=== PATIENT | female | born 1995 | race Caucasian/White ===

== ENCOUNTER → 2019-06-18 11:42 | Outpatient (BNVA) | payer MEDICAID, SELFPAY | PROVIDERS: Family Provider Family Medicine; PCP Family Medicine; Visit Provider Nurse Practitioner Women's Health | DX: N93.9 Abnormal uterine and vaginal bleeding, unspecified (principal) | CPT/HCPCS: 81025; 87491; 87591; 87661 ==

== ENCOUNTER → 2019-07-03 10:56 | Outpatient (BNVA) | payer MEDICAID, SELFPAY | PROVIDERS: Family Provider Family Medicine; PCP Family Medicine; Visit Provider Nurse Practitioner Women's Health | DX: N93.9 Abnormal uterine and vaginal bleeding, unspecified (principal) | CPT/HCPCS: 76830 ==

== ENCOUNTER → 2019-08-26 10:13 | Outpatient (BNVA) | payer MEDICAID, SELFPAY | PROVIDERS: Family Provider Family Medicine; PCP Family Medicine; Visit Provider Nurse Practitioner Women's Health | DX: Z72.51 High risk heterosexual behavior (principal); N93.9 Abnormal uterine and vaginal bleeding, unspecified | CPT/HCPCS: 84702 ==

== ENCOUNTER → 2019-09-10 10:26 | Outpatient (BNVA) | payer MEDICAID, SELFPAY | PROVIDERS: Family Provider Family Medicine; PCP Family Medicine; Visit Provider Emergency Medicine | DX: Z34.90 Encounter for supervision of normal pregnancy, unspecified, unspecified trimester (principal); N93.9 Abnormal uterine and vaginal bleeding, unspecified | CPT/HCPCS: 81025; 84702 ==

== ENCOUNTER → 2020-04-13 12:36 | Outpatient (BNVA) | payer MEDICAID, SELFPAY | PROVIDERS: Family Provider Family Medicine; PCP Family Medicine; Visit Provider Emergency Medicine | DX: Z32.00 Encounter for pregnancy test, result unknown (principal); R11.0 Nausea | CPT/HCPCS: 81025 ==

== ENCOUNTER → 2020-06-06 13:34 | Outpatient (BNVA) | payer MEDICAID, SELFPAY | PROVIDERS: Family Provider Family Medicine; PCP Family Medicine; Referring Provider Registered Nurse; Visit Provider Registered Nurse | DX: Z79.899 Other long term (current) drug therapy (principal) | CPT/HCPCS: 36415; 80053; 80061; 82306; 83036; 83540; 85025 ==

== ENCOUNTER → 2020-07-06 14:24 | Outpatient (BNVA) | payer MEDICAID, SELFPAY | PROVIDERS: Family Provider Family Medicine; PCP Family Medicine; Visit Provider Emergency Medicine | DX: R53.83 Other fatigue (principal); R10.9 Unspecified abdominal pain; Z33.1 Pregnant state, incidental | CPT/HCPCS: 81000; 81025 ==

== ENCOUNTER 2020-08-19 16:41 | Emergency (ER) | payer MEDICAID, SELFPAY ==
[2020-08-19 17:49] LABS: Basophils % 0.3 %; Eosinophils # 0.1 10^3/uL (0.0-0.8); Eosinophils % 1.2 %; Hematocrit 33.4 % (37.0-47.0); Hemoglobin 11.2 g/dL (11.5-15.3); Lymphocytes # 1.9 10^3/uL (0.8-4.8); Lymphocytes % 20.5 %; Mean Corpuscular HGB Conc 33.5 g/dL (30.0-36.0); Mean Corpuscular Hemoglobin 32.4 pg (28.0-34.0); Mean Corpuscular Volume 96.5 fL (81-99); Mean Platelet Volume 9.2 fL (7.4-10.4); Monocytes # 0.7 10^3/uL (0.2-0.9); Neutrophils # 6.61 10^3/uL (1.8-7.7); Neutrophils % 70.3 %; Nucleated Red Blood Cells % 0 %; Platelet Count 283 10^3/cmm (130-400); Red Blood Count 3.46 10^6/uL (4.1-5.3); Red Cell Distribution Width 13.5 % (12.1-15.1); White Blood Count 9.4 10^3/uL (4.0-10.0)
[2020-08-19 17:51] VITALS: BP 103/58; PULSE 72; RESP 16; TEMP 36.7; O2SAT 97; BMI 19.8
[2020-08-19 18:29] LABS: Alanine Aminotransferase 11 U/L (0-33); Albumin Level 3.8 g/dL (3.5-5.2); Alkaline Phosphatase 50 IU/L (35-105); Anion Gap 14.9 (5-19); Aspartate Amino Transferase 11 U/L (0-32); Blood Urea Nitrogen 8 mg/dL (6-20); Calcium 8.6 mg/dL (8.5-10.5); Carbon Dioxide 22 mmol/L (22-29); Chloride 103 mmol/L (98-107); Globulin 2.1 g/dL (1.3-4.6); Glomerular Filtration Rate 273.3 mL/min (90-130); Glucose 79 mg/dL (65-115); Osmolality Calculated 279 mOsm/kg (285-295); Potassium 3.9 mmol/L (3.5-5.1); Sodium 136 mmol/L (136-145); Total Bilirubin 0.2 mg/dL (0.15-1.2); Total Protein 5.9 g/dL (6.6-8.7)
[2020-08-19 22:39] VITALS: BP 113/71; PULSE 75; RESP 18; O2SAT 100
--- NOTE | 2020-08-19 22:49 | ED_ITS ---
HPI - General: Chief complaint: Vaginal Bleeding Stated complaint: 6 WKS /SENT BY [facility] FOR CRAMP[facility]/BLEED Time Seen by Provider: 08/19/20 22:34 Source: patient Mode of arrival: ambulatory Limitations: no limitations History of Present Illness: HPI Narrative: 25-year-old female states that she believes she is either 6 or 12 weeks . She states that her OB told her she is 6 weeks did not have an ultrasound. She states that by her last menstruation she believes she is 12 weeks. States that today she had some very slight vaginal bleeding. She states it has not been enough to fill up a pad. She denies any blood clots and denies any pain. This is her first . Date of Last Menstrual Period: 06/09/20 Associated symptoms: Deny abdominal pain, headache(s), nausea or vomiting Related Data: : 1 Review of Systems Const: Denies: fever(s), chills, body aches or change in appetite Eyes: Denies: blurry vision or eye discomfort ENMT: Denies: throat pain or dental pain Card: Denies: chest pain Resp: Denies: dyspnea GI: Denies: abdominal pain, nausea, vomiting or diarrhea : Reports: vaginal bleeding Musc: Denies: neck pain or back pain Skin/Breast: Denies: rash Neuro: Denies: headache(s) Psych: Denies: depression Eliud/Lymph: Denies: easy bruising All/Imm: Denies: urticaria PFSH ED PFSH: Medical History Abnormal uterine bleeding No pertinent past medical history neghx: dm,htn,thyroid,dvt/pe Surgical History No pertinent past surgical history Family History Grandmother Hypertension Maternal grandmother Diabetes Maternal grandmother Denies family history of Hyperlipidemia Stroke Social History Smoking and tobacco status: current every day smoker Alcohol intake: never Additional social history: Tobacco use: Everyday smoker--- smokes two cigarettes per day Alcohol use: denies Drug use: Denies past or present use Female Reproductive History: Date of last menstrual period: 06/09/20 : 1 Spontaneous abortions: No Physical Exam Const: COMMON NORMALS: no acute distress, patient oriented x3 and healthy harmony earing HENMT: COMMON NORMALS: normocephalic and atraumatic HEAD & SCALP: normocephalic and atraumatic Eye: COMMON NORMALS: Equal, round and reactive pupils present and EOMs intact bilaterally PUPIL: Yes Equal, round and reactive pupils present Neck/C-Spine: COMMON NORMALS: full ROM and supple Chest: COMMONS NORMALS: normal inspection of the chest and normal palpation of entire chest wall Resp: COMMON NORMALS: normal respiratory effort, No retractions, No use of accessory muscles and clear to auscultation bilaterally AUSCULTATION: clear to auscultation bilaterally Cardio: COMMON NORMALS: regular rate, regular rhythm and No murmurs present (Cardio) RATE: regular rate RHYTHM: regular rhythm GI: COMMON NORMALS: Normal to inspection, nondistended, normoactive bowel sounds present, Soft to palpation, non-tender and no masses PALPATION: Yes Soft to palpation Extremity: COMMON NORMALS: normal to inspection and full ROM Neuro: COMMON NORMALS: patient oriented x3, moves all extremities and no focal motor deficits Psych: COMMON NORMALS: mental status grossly normal, Normal thought process present and cooperative THOUGHT PROCESS: Normal thought process present Skin: COMMON NORMALS: no rashes or lesions noted and no wounds GENERAL SKIN EXAM: no rashes or lesions noted Course Vital Signs: Vital signs: Vital Signs Temperature 98.1 F 08/19/20 17:51 Pulse Rate 75 08/19/20 22:39 Respiratory Rate 18 08/19/20 22:39 Blood Pressure 113/71 08/19/20 22:39 Pulse Oximetry 100 08/19/20 22:39 MDM - OB/Uterine Contractions MDM Narrative: Medical decision making narrative: Patient presents here with vaginal bleeding with threatened miscarriage. Her bleeding is very minimal. Otis torres's blood work here is all normal she has no pain and bleeding is since stopped. Did a bedside ultrasound that actually showed her IUP to be roughly 12 to 13 weeks with good movement and heart rate of 146. Patient has no signs of ectopic. She is stable for discharge is to follow-up with her OB Dr. Guzmán and return if worsening. Lab Data: Labs: Lab Results 08/19/20 08/19/20 08/19/20 Range/Units 17:35 17:35 17:35 WBC 9.4 (4.0-10.0) 10^3/ uL RBC 3.46 L (4.1-5.3) 10^6/u L Hgb 11.2 L (11.5-15.3) g/dL Hct 33.4 L (37.0-47.0) % MCV 96.5 (81-99) fL MCH 32.4 (28.0-34.0) pg MCHC 33.5 (30.0-36.0) g/dL RDW 13.5 (12.1-15.1) % Plt Count 283 (130-400) 10^3/c mm MPV 9.2 (7.4-10.4) fL Neut % (Auto) 70.3 % Lymph % (Auto) 20.5 % [place] % (Auto) 7.0 % Eos % (Auto) 1.2 % Baso % (Auto) 0.3 % Neut # (Auto) 6.61 (1.8-7.7) 10^3/u L Lymph # (Auto) 1.9 (0.8-4.8) 10^3/u L [place] # (Auto) 0.7 (0.2-0.9) 10^3/u L Eos # (Auto) 0.1 (0.0-0.8) 10^3/u L Baso # (Auto) 0.0 (0.0-0.1) 10^3/u L Nucleated RBC % (a uto) 0 % Nucleated RBCs # 0.0 /100WBC Sodium 136 (136-145) mmol/L Potassium 3.9 (3.5-5.1) mmol/L Chloride 103 (98-107) mmol/L Carbon Dioxide 22 (22-29) mmol/L Anion Gap 14.9 (5-19) BUN 8 (6-20) mg/dL Creatinine 0.3 L (0.5-0.9) mg/dL GFR Calculation 273.3 H (90-130) mL/min Glucose 79 (65-115) mg/dL Calculated Osmolal ity 279 L (285-295) mOsm/k g Calcium 8.6 (8.5-10.5) mg/dL Total Bilirubin 0.2 (0.15-1.2) mg/dL AST 11 (0-32) U/L ALT 11 (0-33) U/L Alkaline Phosphata se 50 (35-105) IU/L Total Protein 5.9 L (6.6-8.7) g/dL Albumin 3.8 (3.5-5.2) g/dL Globulin 2.1 (1.3-4.6) g/dL Ser , [place] 9[address].00 mIU/mL Blood Type A Positive Rho(D) Type Positive / 4+ Discharge Plan Discharge Patient Disposition: Home Clinical Impression: Threatened miscarriage Condition: Stable Prescriptions: No Action prenat.vits,apple,wax-gbmo-mtlhk Tablet 1 tab PO DAILY RF: 0 Discharge Orders: Discharge ED (Routine); Ordered 08/19/20 Ordered By: Roly Samano Referrals: Kari Willingham MD [Primary Care Provider] - Discharge Diet: Advance as tolerated Discharge Activity: Resume usual activity Patient Instructions: Threatened Miscarriage (ED) Coding Level of Care Code ED Ball Sorter for Chg Fwd Exam Comprehensive
== END 2020-08-19 23:00 | disposition home or self-care (01) ==
PROVIDERS: Physician Assistant; Emergency Provider Emergency Medicine; PCP Family Medicine
DX: O20.0 Threatened abortion (principal); O99.331 Smoking (tobacco) complicating pregnancy, first trimester; F17.210 Nicotine dependence, cigarettes, uncomplicated; Z3A.12 12 weeks gestation of pregnancy
CPT/HCPCS: 36415; 80053; 84702; 85025; 86900; 99282

== ENCOUNTER → 2020-09-26 15:44 | Outpatient (BNVA) | payer MEDICAID, SELFPAY | PROVIDERS: PCP Family Medicine; Visit Provider Nurse Practitioner Psychiatric/Mental Health | DX: F31.81 Bipolar II disorder (principal); F43.12 Post-traumatic stress disorder, chronic | CPT/HCPCS: 99213 ==

== ENCOUNTER → 2020-10-24 07:41 | Outpatient (BNVA) | payer MEDICAID, SELFPAY | PROVIDERS: PCP Family Medicine; Visit Provider Nurse Practitioner Psychiatric/Mental Health | DX: F31.81 Bipolar II disorder (principal); Z34.90 Encounter for supervision of normal pregnancy, unspecified, unspecified trimester | CPT/HCPCS: 99213 ==

== ENCOUNTER 2020-11-15 21:19 | Outpatient (CLI) | payer MEDICAID, SELFPAY ==
[2020-11-15 21:31] VITALS: BP 122/73; PULSE 93
[2020-11-15 21:33] VITALS: TEMP 37.3
[2020-11-15 21:47] VITALS: RESP 14
[2020-11-15 21:59] VITALS: BMI 24.8
[2020-11-15 22:18] LABS: Bilirubin Urine Neg (Negative); Blood Urine Neg (Negative); Glucose Urine UA Norm (Normal); Ketones Urine Negative (Negative); Leukocyte Esterase Urine 1+ (Negative); Nitrate Urine Negative (Negative); Protein Urine Neg (Negative); Urine Appearance SL Hazy (CLEAR); Urine Color Straw (Yellow); Urobilinogen Urine Norm (Negative); pH Urine 7 (5-7)
[2020-11-15 22:22] LABS: Add Urine Culture? No; Bacteria Urine TRACE /hpf; Squamous Epithelial Cell Urine 25-40 /hpf (0-5); WBC Urine 0-4 /hpf (0-5)
[2020-11-15] MEDS: acetaminophen 500 mg Tablet 1000 MG PO (22:22)
[2020-11-15 22:39] VITALS: BP 128/75; PULSE 75; TEMP 36.8
[2020-11-15 22:50] VITALS: BP 128/75; PULSE 75; RESP 15; TEMP 36.8
== END 2020-11-15 22:54 | disposition home or self-care (01) ==
LOC: OPOB 21:20 → OBGYN 21:21
PROVIDERS: PCP Family Medicine; Visit Provider Family Medicine
DX: O26.899 Other specified pregnancy related conditions, unspecified trimester (principal); Z3A.00 Weeks of gestation of pregnancy not specified; R10.9 Unspecified abdominal pain
CPT/HCPCS: 81001; 99211

== ENCOUNTER → 2020-12-26 11:27 | Outpatient (BNVA) | payer MEDICAID, SELFPAY | PROVIDERS: PCP Family Medicine; Visit Provider Nurse Practitioner Psychiatric/Mental Health | DX: F31.81 Bipolar II disorder (principal); Z34.93 Encounter for supervision of normal pregnancy, unspecified, third trimester | CPT/HCPCS: 99213 ==

== ENCOUNTER 2021-01-19 12:36 | Outpatient (CLI) | payer MEDICAID, SELFPAY ==
[2021-01-19 12:36] VITALS: BMI 28.6
[2021-01-19 12:56] VITALS: BP 110/73; PULSE 79
[2021-01-19 12:57] VITALS: BP 114/66; PULSE 92
[2021-01-19 13:12] VITALS: BP 112/70; PULSE 75
[2021-01-19 13:21] VITALS: RESP 17
[2021-01-19 13:27] VITALS: BP 106/70; PULSE 77
== END 2021-01-19 13:35 | disposition home or self-care (01) ==
LOC: OPOB 12:43 → OBGYN 12:45
PROVIDERS: PCP Family Medicine; Visit Provider Family Medicine
DX: O99.891 Other specified diseases and conditions complicating pregnancy (principal); R10.2 Pelvic and perineal pain; O12.00 Gestational edema, unspecified trimester
CPT/HCPCS: 59025; 99211

== ENCOUNTER → 2021-01-23 07:54 | Outpatient (BNVA) | payer MEDICAID, SELFPAY | PROVIDERS: PCP Family Medicine; Visit Provider Nurse Practitioner Psychiatric/Mental Health | DX: F31.81 Bipolar II disorder (principal); Z34.93 Encounter for supervision of normal pregnancy, unspecified, third trimester | CPT/HCPCS: 99213 ==

== ENCOUNTER 2021-01-27 17:55 | Outpatient (CLI) | payer MEDICAID, SELFPAY ==
[2021-01-27 18:09] VITALS: BP 132/87; PULSE 80
[2021-01-27 18:14] VITALS: BMI 29.2
[2021-01-27 18:32] VITALS: TEMP 36.9
[2021-01-27 18:51] VITALS: BP 134/88; PULSE 93
[2021-01-27 19:05] VITALS: BP 126/74; PULSE 68
[2021-01-27 19:11] LABS: Bilirubin Urine Neg (Negative); Blood Urine Trace (Negative); Glucose Urine UA Norm (Normal); Ketones Urine Negative (Negative); Leukocyte Esterase Urine 2+ (Negative); Nitrate Urine Negative (Negative); Protein Urine Neg (Negative); Urine Appearance Clear (CLEAR); Urine Color Yellow (Yellow); Urobilinogen Urine Norm (Negative); pH Urine 7 (5-7)
[2021-01-27 19:12] LABS: RBC Urine 0-4 /hpf (0-2); WBC Urine 40-55 /hpf (0-5)
[2021-01-27 19:13] LABS: Add Urine Culture? No; Bacteria Urine 3+ /hpf; Squamous Epithelial Cell Urine 25-40 /hpf (0-5)
[2021-01-27 19:20] VITALS: BP 118/77; PULSE 65
[2021-01-27 19:35] VITALS: BP 125/87; PULSE 75
[2021-01-27] MEDS: amoxicillin 500 mg Capsule PO (19:51)
--- NOTE | 2021-01-27 20:16 | PC.NURSE ---
amoxicillin 500 mg BID x7 days called into [facility] in [place].
== END 2021-01-27 19:57 | disposition home or self-care (01) ==
LOC: OPOB 18:03 → OBGYN 18:04
PROVIDERS: Family Medicine; PCP Family Medicine; Visit Provider Family Medicine
DX: O26.899 Other specified pregnancy related conditions, unspecified trimester (principal); Z3A.00 Weeks of gestation of pregnancy not specified; R10.30 Lower abdominal pain, unspecified
CPT/HCPCS: 59025; 81001; 99211

== ENCOUNTER 2021-02-05 08:38 | Inpatient (IN) | payer MEDICAID, SELFPAY ==
[2021-02-05] VITALS (73 sets, daily range): BP systolic 112–180; BP diastolic 61–107; PULSE 74–203; RESP 16–20; TEMP 35.6–37.8; O2SAT 97–100; BMI 30.1
[2021-02-05 08:09] LABS: Actim Prom Positive
[2021-02-05 08:09] LABS: Bilirubin Urine Neg (Negative); Blood Urine 3+ (Negative); Glucose Urine UA Norm (Normal); Ketones Urine Negative (Negative); Leukocyte Esterase Urine 2+ (Negative); Nitrate Urine Negative (Negative); Protein Urine Neg (Negative); Specific Gravity, Urine 1.005 (1.005-1.030); Urine Appearance SL Hazy (CLEAR); Urine Color Straw (Yellow); Urobilinogen Urine Norm (Negative); pH Urine 7 (5-7)
[2021-02-05 08:11] LABS: Bacteria Urine 1+ /hpf; RBC Urine >100 /hpf (0-2); Squamous Epithelial Cell Urine 25-40 /hpf (0-5); WBC Urine 15-25 /hpf (0-5)
[2021-02-05 08:12] LABS: Add Urine Culture? No; Amphetamines Screen Urine Negative (Negative); Barbiturates Screen Urine Negative (Negative); Benzodiazepines Screen Urine Negative (Negative); Cocaine Screen Urine Negative (Negative); Opiate Screen Urine Negative (Negative); PCP Screen Urine Negative (Negative); THC Screen Urine Negative (Negative)
[2021-02-05 09:22] LABS: Basophils % 0.2 %; Eosinophils % 0.1 %; Hemoglobin 12.9 g/dL (11.5-15.3); Lymphocytes # 1.9 10^3/uL (0.8-4.8); Mean Corpuscular HGB Conc 34.9 g/dL (30.0-36.0); Mean Corpuscular Hemoglobin 32.9 pg (28.0-34.0); Mean Corpuscular Volume 94.4 fl (81-99); Mean Platelet Volume 9.6 fL (7.4-10.4); Monocytes # 1.1 10^3/uL (0.2-0.9); Monocytes % 7.1 %; Neutrophils # 12.28 10^3/uL (1.8-7.7); Neutrophils % 79.9 %; Nucleated Red Blood Cells % 0 %; Platelet Count 246 10^3/cmm (130-400); Red Blood Count 3.92 10^6/uL (4.1-5.3); Red Cell Distribution Width 12.7 % (12.1-15.1); White Blood Count 15.4 10^3/uL (4.0-10.0)
[2021-02-05] MEDS: oxytocin 30 UNIT/500 ML BAG IV (11:07)
[2021-02-05] MEDS: dextrose 5%-lactated ringers 1,000 ML 125 ML IV (11:08)
[2021-02-05] MEDS: oxytocin 30 UNIT/500 ML BAG 4 UNIT IV (11:30)
--- NOTE | 2021-02-05 12:43 | ANES.PAUD2 ---
Pre-Anesthetic Update Pre-Anesthetic Assessment: Date of Surgery/Procedure: 02/05/21 Preop Diagnosis: IUP Any changes to Pre-Anesthetic Assessment?: No Labs Last 48hrs: Laboratory Results - last 48 hr 02/05/21 02/05/21 02/05/21 07:40 07:40 07:45 WBC RBC Hgb Hct MCV MCH MCHC RDW Plt Count MPV Neut % (Auto) Lymph % (Auto) [place] % (Auto) Eos % (Auto) Baso % (Auto) Neut # (Auto) Lymph # (Auto) [place] # (Auto) Eos # (Auto) Baso # (Auto) Nucleated RBC % (a uto) Nucleated RBCs # Insulin-like GF I Positive Urine Color Straw Urine Appearance Sl hazy Urine pH 7 Ur Specific Gravit y 1.005 Urine Protein Neg Urine Glucose (UA) Norm Urine Ketones Negative Urine Blood 3+ H Urine Nitrate Negative Urine Bilirubin Neg Urine Urobilinogen Norm Ur Leukocyte Tanja ase 2+ H Urine RBC >100 H Urine WBC 15-25 H Ur Squamous Epith Cells 25-40 H Amorphous Sediment Not Reportable Urine Bacteria 1+ H Urine Opiates Scre en Negative Ur Barbiturates Sc reen Negative Ur Phencyclidine S crn Negative Ur Amphetamines Sc reen Negative U Benzodiazepines Scrn Negative Urine Cocaine Scre en Negative U Marijuana (THC) Screen Negative 02/05/21 08:45 WBC 15.4 H RBC 3.92 L Hgb 12.9 Hct 37.0 MCV 94.4 MCH 32.9 MCHC 34.9 RDW 12.7 Plt Count 246 MPV 9.6 Neut % (Auto) 79.9 Lymph % (Auto) 12.0 [place] % (Auto) 7.1 Eos % (Auto) 0.1 Baso % (Auto) 0.2 Neut # (Auto) 12.28 H Lymph # (Auto) 1.9 [place] # (Auto) 1.1 H Eos # (Auto) 0.0 Baso # (Auto) 0.0 Nucleated RBC % (a uto) 0 Nucleated RBCs # 0.0 Insulin-like GF I Urine Color Urine Appearance Urine pH Ur Specific Gravit y Urine Protein Urine Glucose (UA) Urine Ketones Urine Blood Urine Nitrate Urine Bilirubin Urine Urobilinogen Ur Leukocyte Tanja ase Urine RBC Urine WBC Ur Squamous Epith Cells Amorphous Sediment Urine Bacteria Urine Opiates Scre en Ur Barbiturates Sc reen Ur Phencyclidine S crn Ur Amphetamines Sc reen U Benzodiazepines Scrn Urine Cocaine Scre en U Marijuana (THC) Screen Vitals: Temperature 96.1 F L 02/05/21 12:09 Pulse Rate 129 H 02/05/21 12:37 Pulse Rhythm 02/05/21 08:42 Pulse Strength 3+ Normal 02/05/21 08:42 Respiratory Rate 20 H 02/05/21 08:38 Respiratory Effort Non-Labored 02/05/21 08:42 Respiratory Depth Normal 02/05/21 08:42 Respiratory Patter n 02/05/21 08:42 Blood Pressure 140/83 02/05/21 12:37 Blood Pressure Leticia n 115 02/05/21 08:38 Pulse Oximetry 98 02/05/21 12:37 Oxygen Delivery Me thod 02/05/21 08:42 Exam: Pre-Anes Outpt Exam: alert, oriented x 3, clear to auscultation bilaterally and regular rate & rhythm Cardiac Studies: No Data to Display
--- NOTE | 2021-02-05 12:43 | ANES.PROC ---
Anesthesia Procedures Procedure/Date: 02/05/21 epidural Procedure Narrative: epidural complete, bolus given, epidural pump initiated with FIRE CAPTAIN education given, vitals taken during procedure using OBIX system and satisfactory throughout, patient admits to decrease pain, report of procedure to OB RN Epidural: Time Out Performed: Yes Consents Signed: Procedure Consent Consent: requested by attending/covering physician, from patient, risks and benefits reviewed and patient agrees to proceed Lumbar Level: L3-L4 Epidural position: sitting Epidural procedure: sterile prep of area, 1% lidocaine to numb the area (3 mL), 18 g needle, negative for paresthesia passed, neg for paresthesia, test dose given, 1.5% xylocaine 1:200k epi (5 mL), 0.2% Ropivacaine bolus ml (5 mL), placed PCEA, no systemic response, sterile dressing applied, L.U.D. no apparent complications and 0.2% Ropiavacaine @ mls/hr (11 mL/hr)
[2021-02-05] MEDS: metoclopramide 5 mg/mL SDV 2 mL 10 MG IV (12:47)
[2021-02-05] MEDS: lidocaine 2% INJ 20 mL INJECTION (18:24)
--- NOTE | 2021-02-05 18:54 | PM.OPHPUD ---
Labor & Delivery H&P Update Date of Procedure: February 05, 2021 Date H&P Performed: 02/01/21 H&P update information: I have reviewed H&P completed within last 30 days, I have examined patient prior to procedure and Changes to prior documentation as noted here Changes to previous documentation: The patient was noted to have spontaneous rupture membranes according to actin PROM test Admission Diagnosis: Preop diagnosis: IUP Planned procedure: Spontaneous vaginal delivery Other information: The patient is a 1 at 39 weeks estimated gestational age who presented to the hospital with question of rupture membranes. That was verified via the actin PROM test. Her has been unremarkable otherwise. Her blood type is a positive her antibody screen is negative. Her glucose screen was negative. The remainder of her lab work was within normal limits. Related Problem List Diagnoses (1) 39 weeks gestation of : (2) Spontaneous rupture of membranes:
--- NOTE | 2021-02-05 19:00 | PM.DELIVERY ---
Delivery Note: Date of delivery: February 05, 2021 Pre-delivery diagnoses: 25-year-old 1 at 39 weeks estimated gestational age Post-delivery diagnoses: Same Procedure: Spontaneous vaginal delivery Op report anesthesia: Epidural Delivering Physician: Aidan Guzmán Estimated blood loss (mL): 200 Pre-Delivery Course: The patient arrived at the hospital and was found to have ruptured membranes. Her labor was augmented with Pitocin. She progressed to complete without difficulty. Delivery: DELIVERY: The patient progressed to complete without difficulty. She delivered a male with a weight of 7 pounds 7 ounces with Apgars of 9, 9. The baby was delivered from the ARSALAN position and placed on the mother's abdomen where his mouth and nose were suctioned.. The cord was then clamped and cut approximately 1 minute after delivery. There was a nuchal cord x1 which was reduced prior to delivery. There was terminal meconium. The placenta and 3 vessel cord were delivered intact shortly thereafter. The perineum and vaginal vault were carefully examined. A first-degree laceration was noted of the left labia minora as well as a first-degree laceration of the posterior vaginal wall. The labia minora was repaired with 3-0 Vicryl. The vaginal wall laceration was not bleeding and was not repaired. Both the mother and the baby were in stable condition. Post-Delivery Status: Good History History History 0 Term Miscarriages/Ectopic Living Children A&P Assessment and plan (1) 39 weeks gestation of : I anticipate routine care. She intends to breast-feed her child. Status: Acute (2) Spontaneous rupture of membranes: Status: Acute Coding Level of Care Code Acute Dry Drug Worker for Chg Fwd Diagnoses 39 weeks gestation of Z3A.39 Spontaneous rupture of membranes
[2021-02-05] MEDS: ibuprofen 800 mg tablet PO (21:12)
[2021-02-06] VITALS (7 sets, daily range): BP systolic 113–136; BP diastolic 71–84; PULSE 68–106; RESP 16–18; TEMP 35.7–36.5; O2SAT 97
[2021-02-06 06:47] LABS: Hematocrit 27.9 % (37.0-47.0); Hemoglobin 9.8 g/dL (11.5-15.3); Mean Corpuscular HGB Conc 35.1 g/dL (30.0-36.0); Mean Corpuscular Hemoglobin 33.2 pg (28.0-34.0); Mean Corpuscular Volume 94.6 fl (81-99); Mean Platelet Volume 9.4 fL (7.4-10.4); Platelet Count 213 10^3/cmm (130-400); Red Blood Count 2.95 10^6/uL (4.1-5.3); Red Cell Distribution Width 13.1 % (12.1-15.1); White Blood Count 17.9 10^3/uL (4.0-10.0)
--- NOTE | 2021-02-06 08:43 | P.PN_ITS ---
FURNACE OPERATOR OIL OR GAS Subjective Subjective: Interval history: Her pain is well controlled. Her bleeding has been within normal limits. Vitals/I&O/Wt Last Vital Signs Temp 96.3 F L 02/06/21 02:19 Pulse 84 02/06/21 04:23 Resp 16 02/06/21 06:43 BP 131/73 02/06/21 04:23 Pulse Ox 98 02/05/21 12:57 02/05/21 02/06/21 02/06/21 22:59 06:59 14:59 Output Total 500 / 500 Balance -500 / -493.5 Weight last 48 hrs Weight 144 lb Physical Exam Narrative: EXAM NARRATIVE: The patient is alert. She appears comfortable. Her heart has a regular rate and rhythm with no murmurs appreciated. Lungs are clear to auscultation bilaterally. Her fundus is firm and below the umbilicus. Urinary Catheter Management^: William: Cath Placed During This Visit: yes Urinary Catheter Date of Insertion: 02/05/21 Urinary Catheter Time of Insertion: 13:00 Data : 02/06/21 06:30 A&P Assessment and plan (1) Spontaneous vaginal delivery: The patient is doing well. Her bleeding has been well controlled. I an ticipate she will be going home tomorrow. Status: Acute Attestations Medical Necessity Statement*: Routine post vaginal delivery care Coding Level of Care Code Acute Human Services Assistant for Chg Fwd Diagnoses Spontaneous vaginal delivery O80
--- NOTE | 2021-02-06 09:15 | ANE.PACU2 ---
Inpatient post-anesthesia follow up: Airway intact: Yes Vital signs: Temperature 96.3 F Pulse Rate 106 Respiratory Rate 16 Blood Pressure 130/71 Pulse Oximetry 98 Oxygen Delivery Me thod Room Air Oxygen Flow Rate Fraction of Inspir ed Oxygen Hydration adequate: Yes Nausea and vomiting: No Pain level: 2 Mental status: Baseline
[2021-02-06] MEDS: ibuprofen 800 mg tablet PO ×3 (09:41→22:18)
[2021-02-06] MEDS: docusate sodium 100 mg Capsule PO ×2 (09:41→18:12)
[2021-02-06] MEDS: prenatal vitamin Capsule 1 CAP PO (09:41)
[2021-02-06] MEDS: lanolin oint 7 gm 1 APPLIC TOPICAL (18:15)
[2021-02-07 03:51] VITALS: BP 117/69; PULSE 68; TEMP 36.6
--- NOTE | 2021-02-07 07:52 | P.DS_ITS ---
Discharge Providers DAIRY AND FOOD LABORATORY ASSISTANT Date of Admission: 02/05/21 08:38 Date of Discharge: 02/07/21 Attending Provider at Admission: Aidan Guzmán MD Attending Provider at Discharge: Aidan Guzmán MD Diagnoses at Discharge Discharge Diagnosis (1) 39 weeks gestation of : Status: Acute (2) Spontaneous rupture of membranes: Status: Acute Reason for Visit Reason for Visit: Abdominal pain Hospital Course Hospital Course The patient presented with possible ruptured membranes. Ruptured membranes were verified. The patient was placed on Cytotec. An amniotomy was performed. Her labor was augmented with Pitocin. She progressed to complete and had an unremarkable vaginal delivery of a healthy-appearing male infant. Her course was also unremarkable. She breast-fed well. Her pain was well controlled. Her bleeding was within normal limits. Information Peripartum Data: Delivery Method: Vaginal Physical Exam Narrative: EXAM NARRATIVE: The patient is alert. She appears comfortable. Her heart has a regular rate and rhythm with no murmurs appreciated. Lungs are clear to auscultation bilaterally. Her fundus is firm and below the umbilicus. Urinary Catheter Management^: William: Cath Placed During This Visit: yes Urinary Catheter Date of Insertion: 02/05/21 Urinary Catheter Time of Insertion: 13:00 History History History 0 Term Miscarriages/Ectopic Living Children Discharge Data Vitals: Last Vital Signs Temp 97.9 F 02/07/21 03:51 Pulse 68 02/07/21 03:51 Resp 16 02/06/21 22:00 BP 117/69 02/07/21 03:51 Pulse Ox 97 02/06/21 22:00 Discharge Plan Discharge Patient Disposition: Home Condition: Stable Prescriptions: New ibuprofen 800 mg Tablet 800 mg PO TID Qty: 45 RF: 0 Continued ferrous sulfate 325 mg (65 mg iron) tablet 325 mg PO DAILY RF: 0 ascorbate calcium (vitamin C) 500 mg tablet 500 mg PO DAILY RF: 0 prenat.vits,apple,rxb-grpl-klyug Tablet 1 tab PO DAILY RF: 0 Discharge Orders: Discharge Order (Routine); Ordered 02/07/21 Ordered By: Aidan Guzmán Referrals: Aidan Guzmán MD [Physician] - 6 Weeks Discharge Diet: Usual diet Discharge Activity: Limit activity as instructed Patient Instructions: Depression (DC), Bleeding (DC), Preeclampsia and Eclampsia After Delivery (GEN), OB Discharge Report, OB Food/Drug Interaction Guide, Opioid Safety, OB Home Care, OB Vaginal Deliveries Discharge Attestations DAIRY AND FOOD LABORATORY ASSISTANT Time Spent in Discharge Care*: greater than 30 min Specific Discharge Activities: Specific discharge activities: educating patient and educating and/or supporting family/caregiver Coding Level of Care Code Acute Retail Product Advisor for Chg Fwd Diagnoses 39 weeks gestation of Z3A.39 Spontaneous rupture of membranes
[2021-02-07 10:00] VITALS: BP 128/82; PULSE 78; RESP 16; TEMP 36.5; O2SAT 99
[2021-02-07] MEDS: docusate sodium 100 mg Capsule PO (10:03)
[2021-02-07] MEDS: prenatal vitamin Capsule 1 CAP PO (10:03)
[2021-02-07] MEDS: ibuprofen 800 mg tablet PO (10:03)
[2021-02-07] MEDS: benzocaine-menthol 78 gm Canister 1 SPRAY TOPICAL (10:03)
[2021-02-07] MEDS: lanolin oint 7 gm 1 APPLIC TOPICAL (10:04)
[2021-02-07 15:19] VITALS: BP 128/82; PULSE 78; RESP 16; TEMP 36.5; O2SAT 99
== END 2021-02-07 14:25 | disposition home or self-care (01) | DRG 807 ==
LOC: OPOB 10:46 → OBGYN 10:46
PROVIDERS: Admitting Provider Family Medicine; Visit Provider Family Medicine
DX: O69.81X0 Labor and delivery complicated by cord around neck, without compression, not applicable or unspecified (principal); Z37.0 Single live birth; O70.0 First degree perineal laceration during delivery; Z3A.39 39 weeks gestation of pregnancy; Z87.891 Personal history of nicotine dependence
CPT/HCPCS: 12345; 36415; 59025; 59409; 80306; 81001; 84112; 85025; 85027; 96374; 99211; J2765; J2795

== ENCOUNTER → 2021-02-23 10:36 | Outpatient (BNVA) | payer MEDICAID, SELFPAY | PROVIDERS: Visit Provider Nurse Practitioner Psychiatric/Mental Health | DX: F31.81 Bipolar II disorder (principal) | CPT/HCPCS: 99213 ==

== ENCOUNTER → 2021-03-21 08:14 | Outpatient (BNVA) | payer MEDICAID, SELFPAY | PROVIDERS: Visit Provider Nurse Practitioner Psychiatric/Mental Health | DX: F31.81 Bipolar II disorder (principal) | CPT/HCPCS: 99212 ==

== ENCOUNTER → 2021-04-18 07:53 | Outpatient (BNVA) | payer MEDICAID, SELFPAY | PROVIDERS: Visit Provider Nurse Practitioner Psychiatric/Mental Health | DX: F31.81 Bipolar II disorder (principal) | CPT/HCPCS: 99212 ==

== ENCOUNTER → 2021-06-20 07:08 | Outpatient (BNVA) | payer MEDICAID, SELFPAY | PROVIDERS: Visit Provider Nurse Practitioner Psychiatric/Mental Health | DX: F31.81 Bipolar II disorder (principal) | CPT/HCPCS: 99212 ==

== ENCOUNTER 2021-08-16 08:21 | Emergency (ER) | payer MEDICAID, SELFPAY ==
[2021-08-16 08:41] VITALS: BP 115/77; PULSE 92; RESP 12; TEMP 36.6; O2SAT 99; BMI 26.5
[2021-08-16 09:45] VITALS: BP 104/55; PULSE 65; O2SAT 98
--- NOTE | 2021-08-16 09:49 | W.ED.FEMALGU ---
HPI - Female Genitourinary General: Chief complaint: Urogenital-Female Stated complaint: vaginal pain Time Seen by Provider: 08/16/21 09:21 Source: patient Mode of arrival: ambulatory Limitations: no limitations History of Present Illness: Patient is a 26-year-old female presents to ED today with a complaint of vaginal pain, vaginal discharge and odor. She states she is having pain to the outside of her genitalia when she urinates. She is not complaining of urinary frequency or urgency. She does states she was seen by Dr. Alejandra yesterday and placed on Macrobid for a possible UTI. Patient states she is sexually active and monogamous with her partner of over 2 years. No abdominal/pelvic pain. MD elicited complaint: dysuria, vaginal discharge, pelvic pain and other (vaginal odor) Onset (ago): day(s) Location of symptoms: external genitalia Vaginal discharge: white Vaginal bleeding: none Urinary symptoms: Dysuria (just states it nuñez on the outside when she urinates) Relieving factors: none Associated symptoms: Reports vaginal discharge; Deny abdominal pain, headache(s) or nausea Treatment prior to arrival: other (Macrobid) Sexual activity: Yes (monogamous with partner x 2 years) Patient : No Date of Last Menstrual Period: 07/31/21 Review of Systems Const: Denies: fever(s), chills, body aches, fatigue or malaise Card: Denies: chest pain Resp: Denies: dyspnea GI: Denies: abdominal pain, nausea, vomiting or diarrhea : Reports: dysuria, vaginal odor and vaginal discharge; Denies: flank pain, difficulty voiding, urinary frequency, urinary urgency, urinary hesitancy or pelvic pain Musc: Denies: neck pain, back pain, extremity pain or joint pain Neuro: Denies: headache(s) PFSH ED PFSH: Medical History Abnormal uterine bleeding No pertinent past medical history neghx: dm,htn,thyroid,dvt/pe Psychiatric care Surgical History No pertinent past surgical history Family History Grandmother Hypertension Maternal grandmother Diabetes Maternal grandmother Denies family history of Hyperlipidemia Stroke Social History Smoking and tobacco status: current some day smoker cigarettes Years cigarettes smoked: 4 Quit status (tobacco): considering quitting Second hand smoke exposure: Yes Alcohol intake: never Additional social history: Tobacco use: Everyday smoker--- smokes two cigarettes per day Alcohol use: denies Drug use: Denies past or present use Female Reproductive History: Date of last menstrual period: 07/31/21 Spontaneous abortions: No Physical Exam Const: COMMON NORMALS: no acute distress, average body habitus, patient oriented x3, no limitations, alert and well nourished GENERAL APPEARANCE: cooperative Resp: COMMON NORMALS: normal respiratory effort and clear to auscultation bilaterally AUSCULTATION: clear to auscultation bilaterally Cardio: COMMON NORMALS: regular rate and regular rhythm RATE: regular rate RHYTHM: regular rhythm : COMMON NORMALS: Yes no CVA tenderness, Yes normal bimanual exam and Yes no masses BLADDER/KIDNEY EXAM: Yes no CVA tenderness EXTERNAL FEMALE EXAM: Yes normal appearance of the urethra SPECULUM EXAM - VAGINA: Yes Vaginal discharge present (thick white) SPECULUM EXAM - CERVIX: Yes Other cervical findings present (cervicitis ) BIMANUAL EXAM - VAGINA & UTERUS: Yes normal bimanual exam BIMANUAL EXAM - ADNEXA, OTHER: Yes normal adnexae OTHER: pt has one small ulcer like lesion to R labia minor close to introitus Back/Pelvis: COMMON NORMALS: no CVA tenderness Neuro: COMMON NORMALS: patient oriented x3 SENSORIUM/ORIENTATION: Yes alert Course Vital Signs: Vital signs: Vital Signs Temperature 97.9 F 08/16/21 08:41 Pulse Rate 68 08/16/21 12:23 Respiratory Rate 12 08/16/21 08:41 Blood Pressure 122/59 08/16/21 12:23 Pulse Oximetry 100 08/16/21 12:23 [facility] - Female Medical Decision Making Patient is a 26-year-old female here for complaints of vaginal pain, dysuria, vaginal discharge and odor. On exam she does have an erythema and irritation to her cervix consistent with a cervicitis. Her UA is normal here. Wet prep shows some bacterial vaginosis. Gonorrhea/chlamydia swabs pending. At this point I will discontinue her Macrobid and start her on Doxycycline and Flagyl. She was given IM Rocephin here. Recommends abstaining sexual activity until cultures return. We will try to get her set up with follow-up with women's health clinic in case symptoms do not improve. She did have one small labial minora lesion present. Patient has no history of HSV. This does not appear as a primary outbreak. Hopefully women's health can follow-up on this as well. Return to ED precautions given. Lab Data Laboratory Results Urine Color Yellow (Yellow) 08/16/21 09:45 Urine Appearance Clear (CLEAR) 08/16/21 09:45 Urine pH 7 (5-7) 08/16/21 09:45 Ur Specific [place] 1.010 (1.005-1.030) 08/16/21 09:45 Urine Protein Neg (Negative) 08/16/21 09:45 Urine Glucose (UA) Norm (Normal) 08/16/21 09:45 Urine Ketones Negative (Negative) 08/16/21 09:45 Urine Blood Neg (Negative) 08/16/21 09:45 Urine Nitrate Negative (Negative) 08/16/21 09:45 Urine Bilirubin Neg (Negative) 08/16/21 09:45 Urine Urobilinogen Norm mg/dL (Negative) 08/16/21 09:45 Ur Leukocyte Esterase Negative (Negative) 08/16/21 09:45 Discharge Plan Discharge Patient Disposition: Home Clinical Impression: Cervicitis Condition: Stable Prescriptions: New metronidazole 500 mg tablet 500 mg PO BID 14 Days Qty: 28 0RF doxycycline monohydrate 100 mg capsule 100 mg PO Q12H 10 Days Qty: 20 0RF No Action ferrous sulfate 325 mg (65 mg iron) tablet 325 mg PO DAILY 0RF ascorbate calcium (vitamin C) 500 mg tablet 500 mg PO DAILY 0RF Mylan Control 0.35 mg tablet PO 0RF prenat.vits,apple,[id number]-jkfc-cbmrf Tablet 1 tab PO DAILY 0RF ibuprofen 800 mg Tablet 800 mg PO TID Qty: 45 0RF Discharge Orders: Discharge ED (Routine); Ordered 08/16/21 Ordered By: Kiera Goins Activity Restrictions/Additional Instructions: Discontinue your Macrobid antibiotic. Please abstain from all sexual activity until the results of your vaginal swab/cultures return. We will have case management to try and get you set up with at the [facility] in case symptoms do not improve on antibiotic therapy. Coding Level of Care Code ED Binding Bench Worker for Chg Fwd Exam Expanded Problem Focused
[2021-08-16 10:27] LABS: Add Urine Microscopic? NO; Charge for UA Resulting for Rev
[2021-08-16 10:30] VITALS: BP 112/71; PULSE 71; O2SAT 100
[2021-08-16 10:36] LABS: Bilirubin Urine Neg (Negative); Blood Urine Neg (Negative); Glucose Urine UA Norm (Normal); Ketones Urine Negative (Negative); Leukocyte Esterase Urine Negative (Negative); Nitrate Urine Negative (Negative); Protein Urine Neg (Negative); Urine Appearance Clear (CLEAR); Urine Color Yellow (Yellow); Urobilinogen Urine Norm (Negative); pH Urine 7 (5-7)
[2021-08-16 11:00] VITALS: BP 138/56; PULSE 92; O2SAT 100
[2021-08-16 12:23] VITALS: BP 122/59; PULSE 68; O2SAT 100
--- NOTE | 2021-08-17 15:14 | DCPLANNER ---
Addendum entered by Clarice Mcnair 09/14/21 11:00: Patient had a follow up appointment scheduled with [facility] - patient did attend appointment. Addendum entered by Clarice Mcnair 08/25/21 14:08: Patient has a follow up appointment scheduled for Saturday, August 28, 2021 at 2:[address] Barker at [facility]. Clinic will call patient with appointment information. Original Note: services account manager had message to schedule a follow up appointment for patient with [facility]. services account manager sent patients information to the front office staff at [facility]. Patients information will be printed and reviewed. Clinic will call patient with appointment information.
== END 2021-08-16 12:26 | disposition home or self-care (01) ==
PROVIDERS: Emergency Provider Physician Assistant
DX: N72 Inflammatory disease of cervix uteri (principal); R30.0 Dysuria
CPT/HCPCS: 81003; 81025; 87210; 87491; 87591; 96372; 99284; J0696

== ENCOUNTER → 2021-10-13 13:21 | Outpatient (BNVA) | payer MEDICAID, SELFPAY | PROVIDERS: Visit Provider Obstetrics & Gynecology | DX: R10.2 Pelvic and perineal pain (principal) | CPT/HCPCS: 76830 ==

== ENCOUNTER 2021-11-04 15:00 | Emergency (ER) | payer MEDICAID, SELFPAY ==
[2021-11-04 15:03] VITALS: BMI 27.1
--- NOTE | 2021-11-04 15:30 | W.ED.HA ---
HPI - Headache General: Chief Complaint: Headache Stated Complaint: headache for a few days Time Seen by Provider: 11/04/21 15:09 History of Present Illness: Patient is a 26-year-old female comes to the ED with a migraine headache. Patient says she has a history of past migraine headaches and says this is similar to her past headaches. Symptoms started approximately 2 days ago. She is taken some Motrin yesterday but it has not helped the headache. She rates her headache currently a 9 out of 10 and says it feels like a pulsing sharp pain in her head. Endorses having some nausea but denies any emesis. Headache worsens with bright lights and loud noises. Denies any vision changes, numbness tingling to 1 side of her body or face or any weakness to 1 side of her body or face. Denies any recent head injuries. Denies any chance of being . Associated symptoms: Reports nausea; Deny chest pain, fever(s), rash or vomiting Review of Systems Const: Denies: fever(s), chills or fatigue Eyes: Reports: photophobia; Denies: change in vision or eye discomfort ENMT: Denies: throat pain, odynophagia, nasal discharge or nasal congestion Card: Denies: chest pain, palpitations, edema, swelling of feet/ankles, dyspnea on exertion or orthopnea Resp: Denies: dyspnea, productive cough or non-productive cough GI: Reports: nausea; Denies: abdominal pain, vomiting, diarrhea, constipation or hematochezia : Denies: flank pain, dysuria or hematuria Musc: Denies: neck pain, back pain or extremity swelling Skin/Breast: Denies: rash or new lesions Neuro: Reports: headache(s); Denies: numbness in extremities or weakness in extremities PFS ED PFSH: Medical History Abnormal uterine bleeding No pertinent past medical history neghx: dm,htn,thyroid,dvt/pe Psychiatric care Surgical History No pertinent past surgical history Family History Grandmother Hypertension Maternal grandmother Diabetes Maternal grandmother Denies family history of Colon cancer Ovarian cancer Clotting disorder Heart disease Hyperlipidemia Breast cancer Anesthesia complication Bleeding disorder Uterine cancer Thyroid condition Stroke Social History Smoking and tobacco status: current every day smoker (3-4 cigarettes per day) Female Reproductive History: Date of last menstrual period: 09/25/21 Spontaneous abortions: No Physical Exam Const: COMMON NORMALS: no acute distress, patient oriented x3 and alert HENMT: COMMON NORMALS: normocephalic HEAD & SCALP: normocephalic MOUTH: Normal oral and palatal mucosa present THROAT: posterior oropharynx normal and uvula midline Eye: COMMON NORMALS: Equal, round and reactive pupils present and EOMs intact bilaterally GENERAL EYE: appearance normal, both eyes and all related structures PUPIL: Yes Equal, round and reactive pupils present Neck/C-Spine: COMMON NORMALS: supple GENERAL: Yes normal visual inspection Lymph: LYMPHATIC: no lymphadenopathy noted Resp: COMMON NORMALS: normal respiratory effort, No retractions, No use of accessory muscles and clear to auscultation bilaterally AUSCULTATION: clear to auscultation bilaterally Cardio: COMMON NORMALS: regular rate, regular rhythm, S1 normal heart sound present, S2 normal heart sound present, No gallops present (Cardio), No clicks present (Cardio), No murmurs present (Cardio) and Peripheral pulses 2+ throughout RATE: regular rate RHYTHM: regular rhythm HEART SOUNDS: S1 normal heart sound present and S2 normal heart sound present PERIPHERAL PULSES: Peripheral pulses 2+ throughout GI: COMMON NORMALS: Normal to inspection, nondistended, normoactive bowel sounds present, Soft to palpation, non-tender and no masses PALPATION: Yes Soft to palpation : COMMON NORMALS: Yes no CVA tenderness BLADDER/KIDNEY EXAM: Yes no CVA tenderness Back/Pelvis: COMMON NORMALS: no CVA tenderness Extremity: GENERAL: Yes normal exam except as noted Neuro: COMMON NORMALS: patient oriented x3, CN's II-XII intact bilaterally, moves all extremities, no focal motor deficits and no sensory deficits noted SENSORIUM/ORIENTATION: Yes alert SENSORY EXAM: Yes extremities (intact) MOTOR EXAM: 5/5 motor strength present throughout Skin: COMMON NORMALS: no rashes or lesions noted GENERAL SKIN EXAM: no rashes or lesions noted and dry skin Course ED course: After patient received migraine cocktail meds symptoms improved. She was ready for discharge home. Vital Signs: Vital signs: Vital Signs Oxygen Delivery Me thod 11/04/21 15:03 MDM - Headache Medical Decision Making Patient is a 26-year-old female comes to the ED with migraine type headache. She has had headaches like this in the past. Endorses having some photophobia and nausea. Vitals are stable. Exam is benign and patient's neuro exam showed no deficits. Patient was given IV migraine cocktail and her symptoms improved greatly and she is ready to be discharged home. Patient was diagnosed with migraine headache told to follow-up with her PCP in the next 7 to 10 days reevaluation. Return to ED precautions given. Patient understood agree with plan. Discharge Plan Discharge Patient Disposition: Home Clinical Impression: Migraine headache Qualifiers: Migraine type: without aura Status migrainosus presence: without status migrainosus Intractability: not intractable Qualified Code(s): G43.009 - Migraine without aura, not intractable, without status migrainosus Condition: Stable Prescriptions: No Action ferrous sulfate 325 mg (65 mg iron) tablet 325 mg PO DAILY ascorbate calcium (vitamin C) 500 mg tablet 500 mg PO DAILY Mylan Control 0.35 mg tablet PO ibuprofen 800 mg tablet 800 mg PO TID PRN Discharge Orders: Discharge ED (Routine); Ordered 11/04/21 Ordered By: Zachary Aleman Referrals: Aidan Guzmán MD [Primary Care Provider] - Discharge Diet: Regular Discharge Activity: Resume usual activity Patient Instructions: Migraine Headache (ED) Activity Restrictions/Additional Instructions: Follow-up with medical provider as directed in the next 5 to 7 days for reevaluation. Take [id number] ibuprofen or Tylenol for any reoccurring headaches. Return to the ER or your medical provider if condition worsens. Please read and understand discharge instructions. Thank you for choosing [facility] for your healthcare needs today. Please realize this is an emergency room and that we are providing you with a medical screening exam and this may not be complete and all inclusive of all the testing and or work up that you may need to determine your ailment or severity of your illness. It is very important that you follow up as instructed or that you return to the Emergency Department should you have concerns or if your condition changes or worsens in any way. Coding Level of Care Code ED Director Of Hemophilia for Melia Soni Exam Comprehensive
[2021-11-04] MEDS: ketorolac 30 mg/mL INJ IVP (15:43)
[2021-11-04] MEDS: dexamethasone 10 mg/mL INJ IVP (15:43)
[2021-11-04] MEDS: diphenhydrAMINE 50 mg/mL SDV 1mL 25 MG IVP (15:49)
[2021-11-04] MEDS: metoclopramide 5 mg/mL SDV 2 mL 10 MG IVP (15:49)
== END 2021-11-04 16:19 | disposition home or self-care (01) ==
PROVIDERS: Emergency Provider Physician Assistant; PCP Family Medicine
DX: G43.009 Migraine without aura, not intractable, without status migrainosus (principal); F17.210 Nicotine dependence, cigarettes, uncomplicated
CPT/HCPCS: 96374; 96375; 99284; J1100; J1200; J1885; J2765

== ENCOUNTER 2021-11-29 11:55 | Day surgery (SDC) | payer MEDICAID, SELFPAY ==
[2021-11-20 10:22] VITALS: BMI 27.6
--- NOTE | 2021-11-20 10:45 | P.ANESASSM_ITS ---
Pre-Anesthetic Assessment Height/Weight: Height 1.47 m Weight 59.874 kg Preop Diagnosis: IUP Operation Date: 11/29/21 12:20 Proposed Procedures p Hysteroscopy, dilation and curettage, polypectomy with Myosure [id number],N93.9,N84.0,R10.2(Not Applicable) - Aljeandro Barker MD s Dilation And Curettage (D&C)(Not Applicable) - Alejandro Barker MD Familial anesthetic complications: None Social Tobacco and No alcohol Exam alert, oriented x 3, clear to auscultation bilaterally and regular rate & rhythm Airway Mallampati: Class II Dentition: full Pulmonary Asthma Anesthetic Plan ASA status: 2 Anesthesia: General Risk of > 500 ml blood loss (7ml/kg in children): No Medications/Allergies Home Medications Medication Instructions Recorded Confirmed Last Taken Type ascorbate calcium (vitamin C) 500 500 mg PO DAILY 12/26/20 11/20/21 Unknown History mg tablet ferrous sulfate 325 mg (65 mg 325 mg PO DAILY 12/26/20 11/20/21 Unknown History iron) tablet Mylan Control 0.35 mg PO DAILY 06/20/21 11/20/21 Unknown History ibuprofen 800 mg tablet 800 mg PO TID PRN Pain 08/28/21 11/20/21 Unknown History Allergies Allergy/AdvReac Type Severity Reaction Status Date / Time ondansetron [From Zofran] Allergy Mild Vomit Verified 11/20/21 10:19 hydrocodone [From Vicodin] Allergy Unknown unk Verified 11/20/21 10:19 acetaminophen [From Vicodin] Allergy hallucinati Verified 11/20/21 10:19 ons latex Allergy ADR-Itching Verified 11/20/21 10:20 sulfamethoxazole AdvReac Mild vomiting, Verified 11/20/21 10:19 [From Bactrim] almost blacked out trimethoprim [From Bactrim] AdvReac Mild vomiting, Verified 11/20/21 10:19 almost blacked out diaper rash cream Allergy Mild ALGY-Rash Uncoded 11/20/21 10:19 [facility] Anesthesia Medical History Abnormal uterine bleeding No pertinent past medical history neghx: dm,htn,thyroid,dvt/pe Psychiatric care Surgical History No pertinent past surgical history Family History Grandmother Hypertension Maternal grandmother Diabetes Maternal grandmother Denies family history of Colon cancer Ovarian cancer Clotting disorder Heart disease Hyperlipidemia Breast cancer Anesthesia complication Bleeding disorder Uterine cancer Thyroid condition Stroke Social History Smoking and tobacco status: current every day smoker (3-4 cigarettes per day) Female Reproductive History Date of last menstrual period: 09/25/21 Spontaneous abortions: No Data Anesthesia Cardiac Studies: No Data to Display
[2021-11-20 10:51] LABS: Basophils # 0.1 10^3/uL (0.0-0.1); Basophils % 0.7 %; Eosinophils # 0.5 10^3/uL (0.0-0.8); Eosinophils % 7.1 %; Hematocrit 40.7 % (37.0-47.0); Hemoglobin 13.9 g/dL (11.5-15.3); Lymphocytes # 2.6 10^3/uL (0.8-4.8); Lymphocytes % 36.7 %; Mean Corpuscular HGB Conc 34.2 g/dL (30.0-36.0); Mean Corpuscular Hemoglobin 31.8 pg (28.0-34.0); Mean Corpuscular Volume 93.1 fl (81-99); Mean Platelet Volume 9.4 fL (7.4-10.4); Monocytes # 0.5 10^3/uL (0.2-0.9); Monocytes % 6.9 %; Neutrophils # 3.44 10^3/uL (1.8-7.7); Neutrophils % 48.2 %; Nucleated Red Blood Cells % 0 %; Platelet Count 289 10^3/cmm (130-400); Red Blood Count 4.37 10^6/uL (4.1-5.3); Red Cell Distribution Width 12.7 % (12.1-15.1); White Blood Count 7.1 10^3/uL (4.0-10.0)
[2021-11-20 11:08] LABS: Add Urine Microscopic? YES; Bilirubin Urine Neg (Negative); Blood Urine Trace (Negative); Glucose Urine UA Norm (Normal); Ketones Urine Negative (Negative); Leukocyte Esterase Urine Negative (Negative); Nitrate Urine Negative (Negative); Protein Urine Neg (Negative); Specific Gravity, Urine 1.015 (1.005-1.030); Urine Appearance Clear (CLEAR); Urine Color Yellow (Yellow); Urobilinogen Urine Norm (Negative); pH Urine 6 (5-7)
[2021-11-20 11:09] LABS: Add Urine Culture? No; Bacteria Urine TRACE /hpf; RBC Urine RARE /hpf (0-2); WBC Urine 0-4 /hpf (0-5)
[2021-11-20 11:34] LABS: Anion Gap 12.6 (5-19); Blood Urea Nitrogen 16 mg/dL (6-20); Calcium 8.9 mg/dL (8.5-10.5); Carbon Dioxide 26 mmol/L (22-29); Chloride 103 mmol/L (98-107); Creatinine Clr Calc Pharmacy 116.1247; Glucose 93 mg/dL (65-115); Osmolality Calculated 285 mOsm/kg (285-295); Potassium 4.6 mmol/L (3.5-5.1); Sodium 137 mmol/L (136-145)
[2021-11-29] VITALS (8 sets, daily range): BP systolic 97–123; BP diastolic 48–76; PULSE 69–102; RESP 15–25; TEMP 36.5–36.6; O2SAT 98–100
[2021-11-29] MEDS: sodium chloride 0.9% 1,000 ML 30 ML IV (12:56)
[2021-11-29] MEDS: scopolamine 1.5 Patch 1 PATCH TRANSDERMA (13:20)
--- NOTE | 2021-11-29 13:20 | P.ANESUD_ITS ---
Pre-Anesthetic Update Pre-Anesthetic Assessment: Date of Surgery/Procedure: 11/29/21 Preop Elsa gnosis: Abnormal uterine bleeding, endometrial polyp, pelvic pain Proposed Procedure: Operation Date: 11/29/21 13:20 Proposed Procedures p Hysteroscopy, dilation and curettage, polypectomy with Myosure [id number],N93.9,N84.0,R10.2(Not Applicable) - Alejandro Barker MD s Dilation And Curettage (D&C)(Not Applicable) - Alejandro Barker MD Any changes to Pre-Anesthetic Assessment?: No Last Intake: Intake Last Liquid Date 11/28/21 Last Liquid Time 22:00 Last Solid Date 11/28/21 Last Solid Time 22:00 Vitals: Temperature 97.9 F 11/29/21 12:30 Temperature Source Temporal Artery S can 11/29/21 12:30 Pulse Rate 69 11/29/21 12:30 Respiratory Rate 17 11/29/21 12:30 Blood Pressure 123/76 11/29/21 12:30 Blood Pressure Leticia n 91 11/29/21 12:30 Pulse Oximetry 100 11/29/21 12:30 Oxygen Delivery Me thod 11/29/21 12:30 Exam: Pre-Anes Outpt Exam: alert, oriented x 3, clear to auscultation bilaterally and regular rate & rhythm Cardiac Studies: No Data to Display
--- NOTE | 2021-11-29 13:20 | W.PM.OPSUD ---
Surgery/Procedure H&P Update DATE OF PROCEDURE: November 29, 2021 DATE H&P PERFORMED: 11/20/21 H&P UPDATE INFORMATION: I have reviewed H&P completed within last 30 days, I have examined patient prior to procedure and No changes to prior documentation PREOP DIAGNOSIS: Abnormal uterine bleeding, endometrial polyp, pelvic pain PLANNED PROCEDURE: Operation Date: 11/29/21 13:20 Proposed Procedures p Hysteroscopy, dilation and curettage, polypectomy with Myosure [id number],N93.9,N84.0,R10.2(Not Applicable) - Alejandro Barker MD s Dilation And Curettage (D&C)(Not Applicable) - Alejandro Barker MD
[2021-11-29 13:24] LABS: OR HCG Qualitative Urine Negative (Negative)
[2021-11-29] MEDS: ceFAZolin 2,000 MG in sodium chloride 0.9% (plus) 50 ML 100 MG IV (13:24)
--- NOTE | 2021-11-29 14:10 | PM.OP ---
Operative Report Date of procedure: November 29, 2021 Pre-op diagnosis: Preop Diagnosis Abnormal uterine bleeding, endometrial polyp, pelvic pain Post-op diagnosis: Same as above Procedure done: Hysteroscopy and dilation and curettage via MyoSure Specimens removed/disposition: Endometrial curettings Surgeon: Alejandro Barker MD Estimated blood loss (mL): 25 IV fluids (mL): 500 Complications: None Findings: None Procedure: After informed consent, the risks included but were not limited to bleeding, infection, injury to internal organs. The patient was counseled on a possible laparotomy and on the potential need for hysterectomy. The patient expressed understanding of the risks involved, all questions were answered, and the patient consented to the procedure. The patient was taken to the operating room where general anesthesia was administered. She was placed in the dorsal lithotomy position and prepped and draped in sterile fashion. A time out procedure was performed. The patient was examined under anesthesia and found to have a normal uterus with normal adnexa. A sterile weight speculum was placed in the vagina. The uterus was then gently sounded to 7 cm, and the cervix was dilated. The 0 degrees MyoSure hysteroscope was advanced gently to the uterine fundus while visualizing the monitor. Survey of the uterine cavity showed: 45 given the, the fundus shows normal proliferative endometrium; left ostium was visualized, and lateral wall with proliferative endometrium; right ostium visualized, and lateral wall with proliferative endometrium; anterior and posterior [place] are with proliferative endometrium; endocervical canal is normal. The MyoSure device was advanced and the direct visualization the endometrium was morcellated without complication. At the end of morcellation the fluid deficit was 345 mL and was estimated at approximately 200 mL were on the floor. There was minimal bleeding noted and the tenaculum removed with goad hemostasis noted. The patient tolerated the procedure well. The patient was taken to the recovery area in stable condition.
--- NOTE | 2021-11-29 14:40 | ANE.PACU2 ---
Inpatient post-anesthesia follow up: Airway intact: Yes Vital signs: Temperature 97.7 F Pulse Rate 100 Respiratory Rate 16 Blood Pressure 115/63 Pulse Oximetry 100 Oxygen Delivery Me thod Simple Mask Oxygen Flow Rate 6 Fraction of Inspir ed Oxygen Hydration adequate: Yes Nausea and vomiting: No Pain level: 1 Mental status: Baseline
== END 2021-11-29 15:47 | disposition home or self-care (01) ==
PROVIDERS: PCP Family Medicine; Visit Provider Obstetrics & Gynecology
PROC: 0UDB8ZZ Extraction of Endometrium, Via Natural or Artificial Opening Endoscopic (ICD-10-PCS; CPT 58558; principal; 2021-11-29 13:10)
PROC: (CPT 58120; 2021-11-29 13:10)
DX: N89.8 Other specified noninflammatory disorders of vagina (principal); R10.2 Pelvic and perineal pain; N84.0 Polyp of corpus uteri; F17.210 Nicotine dependence, cigarettes, uncomplicated
CPT/HCPCS: 58558; 36415; 80048; 81001; 81025; 84703; 85025; 86850; 86900; 88305; J1100; J1200; J2250; J2704; J3010; J7030

== ENCOUNTER → 2024-05-11 15:23 | Outpatient (BNVA) | payer SELFPAY | PROVIDERS: PCP Family Medicine; Visit Provider Nurse Practitioner Psychiatric/Mental Health | DX: Z03.89 Encounter for observation for other suspected diseases and conditions ruled out (principal) | CPT/HCPCS: 81025 ==

== ENCOUNTER 2024-08-27 09:58 | Emergency (ER) | payer MEDICAID, SELFPAY ==
[2024-08-27 10:02] VITALS: BP 127/71; PULSE 76; RESP 18; TEMP 36.6; O2SAT 100
--- OUTSIDE RECORDS SUMMARY | 2024-08-27 10:20 | XMS_ITS | Data Portability ---
Author Organization [facility] [place] [facility] Jaylin Piedra [facility] Address [address] [address] Care Team Providers Care Tip Inserter Name Role Phone TIFFANIE ARELLANO Primary Care Provider Unavaila ble Assessment Encounter Date Assessment Date Assessment LastModified by Organization Details LastModified Time 05/28/2022 05/28/2022 Take medications as prescribed and complete full course. Use Tylenol vs IBU for discomfort. Swish warm salt water as needed. Patient was educated that sx will continue to return over and over until dental concerns are addressed. Patient has made an appointment with a dentist to have the tooth removed. Instructed that she must eat while on IBU. Instructed to eat soft mechanical diet. F/U PRN if sx do not improve or worsen. Keep dental appointment. Patient verbalizes understanding and agreement with this plan of care. Will call with any questions or concerns. Patient seen by SHRUTHI Moss in supervision by MARTELL Carbajal. [email or web address] Not available 05/28/2022 13:28:57 01/31/2023 01/31/2023 Patient presented with symptoms of viral upper respiratory infection. Advised to drink plenty of fluids, run a cool-mist humidifier in room at night, gargle salt water for sore throat, and get plenty of rest. Patient should avoid over-exertion and reduce exposure to irritants such as smoke, cold, dry air, and dust. Treatment currently involves symptomatic relief. Patient may take acetaminophen or ibuprofen as directed to reduce fever and body aches. Antihistamine and decongestant usage was discussed and recommendations made. Steroid provided to help with symptoms Patient understood these instructions and will follow up in the office in 7-10 days if symptoms not improving. [email or web address] Not available 02/03/2023 08:21:12 Plan of Treatment Reminders Order Date Submit Date Provider Last Modified By Organization Details Last Modified Time Details Appointments None recorded. Lab rapid flu (A+B), PCR 2024 025 [email or web address] [facility] ([facility]), [address] [place], [address], 5 12:20:07 test, urine 2023 024 [email or web address] [facility] ([facility]), [address] [place], [address], 4 12:25:45 urinalysis, complete 2023 024 [email or web address] [facility] ([facility]), [address] [place], [address], 4 13:34:43 culture, urine 2023 024 [place] Jiujiuwe[facility]ang [facility], [address] [place] [address], [facility] [address] [place], [address], 4 19:20:50 Referral None recorded. Procedures None recorded. Surgeries None recorded. Imaging None recorded. Medication Orders Reglan 10 mg tablet 2024 025 [facility]acy #[id number], [address] [facility], [facility] [address], [address], 5 10:20:26 prednisone 20 mg tablet 2024 025 [facility]/Pharmacy #[id number], [address] [facility], [facility], [place], [address], 5 10:20:26 Reglan 10 mg tablet 2023 025 [facility], [address], [place], [address], 5 09:48:57 Augmentin 875 mg-125 mg tablet 2023 024 [facility] 15, [address], [place], [address], 4 12:08:31 prednisone 20 mg tablet 2022 024 [facility] 15, [address], [place], [address], 4 12:09:47 amoxicillin 875 mg tablet [address], [address], [address], 4 12:08:09 Patient TargetsNo targets recorded. Patient InstructionsNo instructions recorded. Reason for Referral None Reported. Results Created Date Observation Date Name Description Value Unit Range Abnormal Flag Note LastModifiedBy Organization Detail LastModifiedTime 04/02/1904/03/2023 CULTU RE, URINE , ROUTI NE culture, urine, routine SEE NOTE CULTU RE, URINE , ROUTI NE Micro Numbe r: [id number] Test Statu s: Final Speci men Sourc e: Urine Speci men Quali ty: Adequ ate Resul t: Mixed genit al arian isola lisbet. These super ficia l bacte boo are not indic ative of a urina ry tract infec tion. No furth er organ ism ident ifica tion is warra nted on this speci men. If clini khris indic ated, recol lect clean -catc h, mid-s tream urine and trans roly immed iatel y to Urine Cultu re Trans port Tube. Not Available [facility] [address], [place], [address], 04/03/2023 19:20:50 04/02/19 24 04/02/2023 urina lysis , compl ete color yellow Not Available [facility] ([facility]) [address] [place], [address], 04/02/2023 12:56:52 04/02/19 24 04/02/2023 urina lysis , compl ete clarity clear clear Not Available [facility] ([facility]) [address] [place], [address], 04/02/2023 12:56:52 04/02/19 24 04/02/2023 urina lysis , compl ete glucose neg negati ve Not Available [facility] ([facility]) [address] [place], [address], 04/02/2023 12:56:52 04/02/19 24 04/02/2023 urina lysis , compl ete bilirubin neg negati ve Not Available [facility] ([facility]) [address] [place], [address], 04/02/2023 12:56:52 04/02/19 24 04/02/2023 urina lysis , compl ete ketones neg negati ve Not Available [facility] ([facility]) [address] [place], [address], 04/02/2023 12:56:52 04/02/19 24 04/02/2023 urina lysis , compl ete specific gravity 1.015 1.005- 1.025 Not Available [facility] ([facility]) [address] [place], [address], 04/02/2023 12:56:52 04/02/19 24 04/02/2023 urina lysis , compl ete pH 7.0 5.0-7. 0 Not Available [facility] ([facility]) [address] [place], [address], 04/02/2023 12:56:52 04/02/19 24 04/02/2023 urina lysis , compl ete protein neg Not Available [facility] ([facility]) [address] [place], [address], 04/02/2023 12:56:52 04/02/19 24 04/02/2023 urina lysis , compl ete uro 0.2 Not Available [facility] ([facility]) [address] [place], [address], 04/02/2023 12:56:52 04/02/19 24 04/02/2023 urina lysis , compl ete nitrate neg negati ve Not Available [facility] ([facility]) [address] [place], [address], 04/02/2023 12:56:52 04/02/19 24 04/02/2023 urina lysis , compl ete blood 1+ negati ve abnormal Not Available [facility] ([facility]) [address] [place], [address], 04/02/2023 12:56:52 04/02/19 24 04/02/2023 urina lysis , compl ete leukocytes neg negati ve Not Available [facility] ([facility]) [address] [place], [address], 04/02/2023 12:56:52 04/02/19 24 04/02/2023 urina lysis , compl ete WBC 1-2 0 abnormal Not Available [facility] ([facility]) [address] [place], [address], 04/02/2023 12:56:52 04/02/19 24 04/02/2023 urina lysis , compl ete RBC 4-6 0 abnormal Not Available [facility] ([facility]) [address] [place], [address], 04/02/2023 12:56:52 04/02/19 24 04/02/2023 urina lysis , compl ete epi cells 6-8 0 abnormal Not Available [facility] [address] [place], [address], 04/02/2023 12:56:52 04/02/19 24 04/02/2023 urina lysis , compl ete bacteria neg Not Available [facility] [address] [place], [address], 04/02/2023 12:56:52 04/02/19 24 04/02/2023 urina lysis , compl ete other neg Not Available [facility]) [address] [place], [address], 04/02/2023 12:56:52 07/15/19 24 07/15/2023 pregn leyla test, urine HCG negati ve Not Available [facility] ([facility]) [address] [place], [address], 07/15/2023 12:20:06 03/19/19 25 03/19/2024 rapid flu (A+B) , PCR Influenza A positi ve Not Available [facility] ([facility]) [address] [place], [address], 03/19/2024 11:51:56 03/19/19 25 03/19/2024 rapid flu (A+B) , PCR Influenza B negati ve Not Available [facility] ([facility]) [address] [place], [address], 03/19/2024 11:51:56 Result Notes None recorded. Problems Name Problem SNOMED Code Status Onset Date Resolution Date Notes Provider Name and Address Organization Details Recorded Time Sickle cell trait 25615610 Active 2021 Sickle Cell Trait; 022 3:38PM by Jere Ojeda, Office Visit; Promote d; acuity set as *; Not Available [facility] 3 03:12:39 Acute viral bronchitis 804408864 Active 2022 Willian Sherman MD [address] [place] [address], [address] [place] [address] , [facility] 3 17:53:14 Influenza-li ke illness 55593708 Active 2024 Willian Sherman MD [address] [place] [address], [address] [place] [address] , [facility] 5 09:59:23 Influenza caused by Influenza A virus 654465318 Active 2024 Willian Sheramn MD [address] [place] [address], [address] [place] [address] , [facility] 5 10:18:52 Nausea and vomiting 29956448 Active 2024 Willian Sherman MD [address] [place] [address], [address] , [facility] 5 10:19:16 Problem Notes None recorded. Medical Equipment None Reported. Allergies Allergen ID Allergen Name Allergen Category Reaction Reaction Severity Criticality Documentation Date Start Date Code Code System Note Provider Name and Address Organization Details Recorded Time 42190 Zofran medicatio n vomiting Not available Not available 09/08/2022 87264 RxNorm React ion: Vomit ing; Comme nt: Recor ded 08/15 3:38P M by Charles Ojeda, Offic e Visit ; Bhavin frausto; Jerry balbuena ce: *; Reaso n: Drug aller gy; ; Not Available [facility] 3 02:28:32 76855 acetamino phen / hydrocodo ne medicatio n hallucina tions Not available Not available 09/08/2022 88342 2 RxNorm React ion: delus ions and tics; Comme nt: Recor ded 08/15 3:38P M by Charles Ojeda, Offic e Visit ; Promo lisbet; Signi sree ce: *; Reaso n: Drug aller gy; ; Not Available [facility] 3 02:28:32 65014 Bactrim medicatio n dizziness Not available Not available 09/08/2022 88603 9 RxNorm React ion: Dizzi ness, Vomit ing; Comme nt: Recor ded 08/15 3:38P M by Charles Ojeda, Offic e Visit ; Promo lisbet; Signjet balbuena ce: *; Reaso n: Drug aller gy; ; Not Available [facility] 3 02:28:32 Medications Name Sig Start Date Stop Date Status Note LastModified by Organization Details LastModified Time Augmentin 875 mg-125 mg tablet Take 1 tablet every 12 hours by oral route for 7 days. 07/14 completed Not Available Not Available Not Available doxycycli ne hyclate 100 mg capsule TAKE 1 CAPSULE BY MOUTH EVERY 12 HOURS 07/14 completed Not Available Not Available Not Available ibuprofen 800 mg tablet TAKE 1 TABLET BY MOUTH THREE TIMES A DAY FOR PAIN active Not Available Not Available No t Available prednison e 20 mg tablet TAKE 1 TABLET BY MOUTH EVERY DAY FOR 5 DAYS active Not Available Not Available No t Available metronida zole 500 mg tablet TAKE 1 TABLET BY MOUTH TWICE DAILY 07/14 completed Not Available Not Available Not Available Reglan 10 mg tablet Take 1 tablet 3 times a day by oral route as needed. 2024 active Not Available Not Available Not Avai lable amoxicill in 875 mg tablet TAKE 1 TABLET BY MOUTH EVERY 12 HOURS FOR 10 DAYS 07/14 completed Not Available Not Available Not Available docusate sodium 100 mg capsule TAKE 1 CAPSULE BY MOUTH TWICE DAILY 07/14 completed Not Available Not Available Not Available norethind jimmie (contrace ptive) 0.35 mg tablet TAKE 1 TABLET BY MOUTH ONCE DAILY active Not Available Not Available No t Available hydroxyzi ne HCl 10 mg tablet TAKE 1 TABLET BY MOUTH AT BEDTIME NEEDED FOR ANXIETY active Not Available Not Available No t Available Sprintec (28) 0.25 mg-0.035 mg tablet QD 07/14 completed Recorded 08/16/19 3:38PM by Jere Ojeda, Office Visit; Refill Quantity : 28; Tablet; Not Available Not Available Not Available promethaz ine every 6-8 hours PRN/NAUS EA 07/14 completed Recorded 08/03/19 12:53PM by MARTA Grajeda, Office Visit; Refill Quantity : 0; Not Available Not Available Not Available FeroSul 325 mg (65 mg iron) tablet TAKE 1 TABLET BY MOUTH ONCE DAILY (TAKE 1 HOUR BEFORE MEAL WITH VITAMIN C) 03/19 completed Not Available Not Available Not Available Vitals Date Recorded Body height Body mass index (BMI) Body weight Oxygen saturation Oxygen saturation in Arterial blood by Pulse oximetry Heart rate Body temperature Systolic And Diastolic Provider Name and Address Organization Details Last Updated DateTime 5 147.32 cm 19.9 kg/m2 25594.3 8 g 99 % 99 % 117 /min 98.3 [degF] 110/60 mm[Hg] Radha Saez [facility] 5 09:51:57 Date Recorded Body height Body mass index (BMI) Body weight Oxygen saturation Oxygen saturation in Arterial blood by Pulse oximetry Heart rate Respiratory rate Body temperature Systolic And Diastolic Provider Name and Address Organization Details Last Updated DateTime 4 147.32 cm 21.5 kg/m2 64427.0 1 g 98 % 98 % 67 /min 20 /min 97.1 [degF] 115/80 mm[Hg] Capri Seymour [facility] 4 13:06:28 Date Recorded Body height Body mass index (BMI) Body weight Oxygen saturation Oxygen saturation in Arterial blood by Pulse oximetry Heart rate Respiratory rate Body temperature Systolic And Diastolic Provider Name and Address Organization Details Last Updated DateTime 3 147.32 cm 24.5 kg/m2 85704.7 1 g 95 % 95 % 89 /min 20 /min 97.3 [degF] 110/78 mm[Hg] JUDY MUELLER [facility] 3 12:52:24 Date Recorded Body height Body mass index (BMI) Body weight Oxygen saturation Oxygen saturation in Arterial blood by Pulse oximetry Heart rate Respiratory rate Body temperature Systolic And Diastolic Provider Name and Address Organization Details Last Updated DateTime 4 147.32 cm 19.6 kg/m2 03121.6 8 g 99 % 99 % 99 /min 16 /min 98.1 [degF] 110/70 mm[Hg] Tim Corona [facility] 4 12:16:51 Date Recorded Body height Body mass index (BMI) Body weight Oxygen saturation Oxygen saturation in Arterial blood by Pulse oximetry Heart rate Respiratory rate Body temperature Systolic And Diastolic Provider Name and Address Organization Details Last Updated DateTime 3 147.32 cm 21.7 kg/m2 64677.6 1 g 97 % 97 % 83 /min 20 /min 97.5 [degF] 105/65 mm[Hg] Capri Seymour [facility] 3 17:43:48 Social History Question Answer Notes LastModified by Organizat ion Details LastModified Time Tobacco Smoking Status Current Every Day Smoker Tim Corona [facility] 07/15/2023 12:11:14 At What Age Did You Start Smoking Tobacco? 15 Information not available 07/15/2023 How Many Years Have You Smoked Tobacco? 13 [email or web address] Information not available 07/15/2023 Sex: Unknown Functional Status None recorded. Mental Status None recorded. Family History Nothing Reported Notes:Maternal Grandfather: Sickle Cell Anemia Mother: Sickle Cell Trait Medical History No medical history recorded. Gynecological HistoryNo gynecological history recorded. Obstetrics History GPAL:G 0 P 0 0 0 0 Past Encounters Encounter ID Performer Location Encounter Start Date Encounter Closed Date Diagnosis/Indication Diagnosis SNOMED-CT Code Diagnosis ICD10 Code Diagnosis Note [id number] MARTA GRAJEDA [facility] ([facility]) [address] [place] [address] 05/28/2022 12:23:33 06/02/2022 15:55:37 Toothache 85444749 K08.89 Infection of tooth 01932 8007 K04.7 [id number] Willian Sherman MD [facility] ([facility]) [address] [place] [address] 01/31/2023 17:14:40 02/07/2023 11:12:49 Acute viral bronchitis 966238578 J20.8 [id number] SHRUTHI ACOSTA [facility] ([facility]) [address] [place] [address] 04/02/2023 12:30:13 04/02/2023 13:59:06 Dysuria 52898829 R30.0 Start Augmentin BID x7 days, take as prescribed . Encouraged to increase water intake and decrease caffeine and sugary drinks. If still having symptoms after completion of antibiotic s, recommend a urine re-check. Urine was sent for culture. Will call with culture results. If worsening condition or no improvemen t in 3-5 days, recommend returning for re-evaluat ion. Patient verbalized understand ing. Discussed with patient that this could be indicative of a kidney stone. No noted CVA tenderness on exam today. If symptoms persist after antibiotic s, will consider renal stone rule out work up. Patient agreeable to plan of care. [id number] MARTA NIEVES [facility] ([facility]) [address] [place] [phone] 07/15/2023 11:57:51 07/15/2023 13:04:18 detection examination 36782277 Z32.00 test negative. Migraine 45946582 G43.90 9 Offered injections today but pt prefers to have an oral anti emetic and then she can take ibuprofen when she gets home. [id number] Willian Sherman MD [facility] ([facility]) [address] [place] [phone] 03/19/2024 09:36:39 03/19/2024 13:15:42 Influenza-like illness 76817276 B34.9 Influenza caused by Influenza A virus 015109739 J09.X2 Recommend supportive care. Push fluids, Tylenol/ib uprofen to help with fever and discomfort . May return back to normal activity when fever free for 24 hours and start to feel better. Will provide prednisone at the patient's request. Zofran as needed as below to help with nausea. Nausea and vomiting 4716 1999 R11.2 Health Concerns Section Related Observation LastModified by Organization Detai ls LastModified Time None Recorded Concern Status LastModified by Organization Details LastModified Time None Recorded Advance Directives Directive None Recorded Payers Insurance Date Sequence Insurance Name Policy Number Policy Martinez Covered Member ID Martinez Member ID Guarantor Name 03/19/2024 1 [place] Primitivo Beltrán [id number] Primitivo Beltrán 03/19/2024 [place] [facility] Primitivo Beltrán [id number] Primitivo Beltrán Notes Date Note Type Note Provider Name and Address Organization Details Recorded Time 05/28/2022 text/html Throat PainRepor lisbet bypatient.Location:rig ht Quality:shooting; throbbing; pressure; radiates to ear; constant Severity:severe; worsening Timing:gradual PATIENT REPORTS RIGHT SIDED FACIAL, JAW, AND THROAT PAIN FOR ABOUT 1 WEEK. YESTERDAY IT BECAME SIGNIFICANTLY WORSE AND SWOLLEN. MARTA GRAJEDA [address] [place], [address], [facility] 05/28/2022 13:29:12 01/31/2023 text/html Upper Respirator y SymptomsReported bypatient.Location:hea d; chest; throat; nasal Quality:productive cough;congested;hurts to swallow Severity:no pain Duration:symptoms lasting less than 2 weeks Onset/Timing:gradual Associated Symptoms:chest pain;yellow sputum;shortness of breath;sore throat;headache Willian Sherman MD [address] [place], [address], [facility] 02/03/2023 08:21:33 04/02/2023 text/html Lower Urinary Tr act Symptoms (LUTS)Reported bypatient.Location:alejandro ateral Quality:painless Severity:mild Onset/Timing:spontaneo us Duration:acute Associated Symptoms:no abdominal pain; no groin pain; no pelvic pain;low back pain;urgency;frequency ;dysuria Patient is a 27 year old female who presents to the walk in clinic today for urinary frequency and mid lower back pain. Patient states she has had symptoms for 2 days. Denies fever. Expresses concerns for UTI. SHRUTHI ACOSTA [address] [place], [address], [facility], Kendra. 04/02/2023 13:36:45 07/15/2023 text/html HeadacheReported bypatient.Location:uni lateral Quality:similar to previous headaches Severity:moderate Duration:has noted for ; <7 days/month; woke up today with headache Onset/Timing:abrupt onset Context:not related to trauma Aggravating factors:loud noise Associated Symptoms:nausea;vomiti ng;chillsNotes:Pt has not taken any meds for this. denies fever, neck pain, or recent illness. No recent trauma.Was vomiting this morning due to the cardoza.Pt states she felt like this when she was so is requesting a test. MARTA NIEVES [address] [place], [address], [facility], LNatoLNatoC. 07/15/2023 12:49:06 03/19/2024 text/html walk inwoke with symptoms N/D, cough. Patient reports subjective fevers. Willian Sherman MD [address] [place], [address], [facility], Kendra. 03/26/2024 09:12:30 OBGyn Episode No OBEpisode recorded.
--- NOTE | 2024-08-27 10:55 | ED_ITS ---
HPI - Headache General: Chief Complaint: Headache Stated Complaint: headache Time Seen by Provider: 08/27/24 10:49 History of Present Illness: 29-year-old female with a history of eduardo bill headaches who presents the emergency room with a migraine headache. She said she woke up this morning with it. She had some vomiting. She felt very anxious. She is also worried about a lump on her neck. I examined the send it is a lymph node. Under 1 cm. She has some photophobia and nausea still. She appears quite anxious Related Data Home Medications ?Medication ?Instructions ?Recorded ?Confirmed ascorbate calcium (vitamin C) 500 500 mg PO DAILY 12/1205/11/24 mg tablet ferrous sulfate 325 mg (65 mg 325 mg PO BID PRN 05/11/24 iron) tablet (Iron (ferrous sulfate)) Previous Rx's ?Medication ?Instructions ?Recorded ibuprofen 800 mg tablet 800 mg PO TID PAIN #60 tabs 12/30/23 norethindrone (contraceptive) 0.35 0.35 mg PO DAILY 3 months #84 tabs 04/17/24 mg tablet hydroxyzine HCl 10 mg tablet 10 mg PO .q hs PRN anxiet y #30 tabs 05/11/24 Allergies Allergy/AdvReac Type Severity Reaction Status Date / Time lanolin (From Super Duper Allergy Mild ALGY-Rash Verified 04/17/24 14:34 Diaper Doo) ondansetron (From Zofran) Allergy Mild Vomit Verified 04/17/24 14:34 petrolatum,white (From Super Allergy Mild ALGY-Rash Verified 04/17/24 14:34 Duper Diaper Doo) hydrocodone (From Vicodin) Allergy Unknown unk Verified 04/17/24 14:34 acetaminophen (From Vicodin) Allergy hallucinati Verified 04/17/24 14:34 ons diphenhydramine (From Allergy ADR-Vomitin Verified 08/27/24 10:06 Benadryl) g latex Allergy ADR-Itching Verified 04/17/24 14:34 sulfamethoxazole (From AdvReac Mild vomiting, Verified 04/17/24 14:34 Bactrim) almost blacked out trimethoprim (From Bactrim) AdvReac Mild vomiting, Verified 04/17/24 14:34 almost blacked out Review of Systems Narrative: Constitutional symptoms: Negative except as documented in HPI. Skin symptoms: Negative except as documented in HPI. Eye symptoms: Negative except as documented in HPI. ENMT symptoms: Negative except as documented in HPI. Respiratory symptoms: Negative except as documented in HPI. Cardiovascular symptoms: Negative except as documented in HPI. Gastrointestinal symptoms: Negative except as documented in HPI. Genitourinary symptoms: Negative except as documented in HPI. Musculoskeletal symptoms: Negative except as documented in HPI. Neurologic symptoms: Negative except as documented in HPI. Psychiatric symptoms: Negative except as documented in HPI. Endocrine symptoms: Negative except as documented in HPI. PFSH ED PFSH: Medical History (Updated 08/27/24 @ 10:54 by Riana Delgado MD) Psychiatric care No pertinent past medical history neghx: dm,htn,thyroid,dvt/pe Abnormal uterine bleeding Surgical History No pertinent past surgical history Family History Grandmother Hypertension Maternal grandmother Diabetes Maternal grandmother Denies family history of Colon cancer Ovarian cancer Clotting disorder Heart disease Hyperlipidemia Breast cancer Anesthesia complication Bleeding disorder Uterine cancer Thyroid disease Stroke Social History Smoking and tobacco/nicotine status: current every day tobacco/nicotine user (3-4-cig daily) Substance/Drug Use: never Female Reproductive History: Spontaneous abortions: No Physical Exam 2 Narrative: EXAM NARRATIVE: General: Alert, no acute distress. Skin: warm and dry Head: Normocephalic Neck: Trachea midline Eye: Extraocular movements are intact. Ears, nose, mouth and throat: Oral mucosa moist Respiratory: Respirations are non-labored Musculoskeletal: Normal ROM Gastrointestinal: Abdomen does not appear distended Neurological: Alert and oriented, No focal neurological deficit observed. Psychiatric: Cooperative, anxious, pressured speech Course Vital Signs: Vital signs: Vital Signs Temperature 97.9 F 08/27/24 10:02 Pulse Rate 76 08/27/24 10:02 Respiratory Rate 18 08/27/24 10:02 Blood Pressure 127/71 08/27/24 10:02 Pulse Oximetry 100 08/27/24 10:02 Oxygen Delivery Me thod Room Air 08/27/24 10:02 MDM - Headache Medical Decision Making Assessment and plan: Migraine headache - 50 mg PO Hydroxyzine - 30 mg IV Toradol - 10 mg IV Reglan - 60 mg IV Norflex - Patient says she is allergic to Benadryl and Zofran. - Discharged home - Discussed plan with patient. Answered any questions. - Evaluation and treatment of this problem were appropriate in the emergency setting. No radiology studies performed this visit Discharge Plan Discharge Patient Disposition: Home Clinical Impression: Migraine Condition: Stable Prescriptions: No Action ascorbate calcium (vitamin C) 500 mg tablet 500 mg PO DAILY Iron (ferrous sulfate) 325 mg (65 mg iron) tablet 325 mg PO BID PRN hydroxyzine HCl 10 mg tablet 10 mg PO .q hs PRN (Reason: anxiety) Qty: 30 3RF Rx Instructions: Take one tablet daily at bedtime, if needed for anxiety norethindrone (contraceptive) 0.35 mg tablet 0.35 mg PO DAILY 90 Days Qty: 84 3RF ibuprofen 800 mg tablet 800 mg PO TID Qty: 60 1RF Discharge Orders: Discharge ED (Routine); Ordered 08/27/24 Ordered By: Riana Delgado Referrals: Aidan Guzmán MD [Primary Care Provider, Family Practice] Discharge Diet: Usual diet Discharge Activity: Increase activity as tolerated Patient Instructions: Migraine Headache (ED), Opioid Safety, Pain Management, Patient Portal & Rodo Instructions Activity Restrictions/Additional Instructions: Thank you for choosing [facility] for your healthcare needs today. You have been screened and evaluated and felt safe for discharge. Health conditions do change or evolve sometimes and as such it is important that you follow up with your Primary Doctor to be re checked, 3-5 days is a general good time frame for follow up. You are always welcome to return to the ED for re assessment if your symptoms are worsening or you have new concerns Print Language: Chinese Coding Level of Care Code ED Whiteprinting Machine Operator for Melia Soni
[2024-08-27] MEDS: metoclopramide 5 mg/mL SDV 2 mL 10 MG IVP (11:11)
[2024-08-27 11:19] VITALS: PULSE 79; O2SAT 100
[2024-08-27] MEDS: orphenadrine 30 mg/mL Inj 2 mL 60 MG IVP (11:24)
[2024-08-27 11:35] VITALS: PULSE 66; RESP 18; O2SAT 98
[2024-08-27 11:49] VITALS: BP 122/68; PULSE 69; O2SAT 99
== END 2024-08-27 11:50 | disposition home or self-care (01) ==
PROVIDERS: Emergency Provider Emergency Medicine; PCP Family Medicine
DX: G43.909 Migraine, unspecified, not intractable, without status migrainosus (principal); F17.210 Nicotine dependence, cigarettes, uncomplicated; Z88.2 Allergy status to sulfonamides; Z88.8 Allergy status to other drugs, medicaments and biological substances; Z91.040 Latex allergy status
CPT/HCPCS: 96374; 96375; 99284; J1100; J1885; J2360; J2765; J9999

== ENCOUNTER 2024-08-29 15:31 | Emergency (ER) | payer MEDICAID, SELFPAY ==
--- OUTSIDE RECORDS SUMMARY | 2007-04-28 07:13 | XMS_ITS | Continuity of Care Document ---
Author Organization [facility] Address [address] [place] [address] Phone Care Team Providers Care Maintenance Foreman Name Role Phone Vani Song MD Unavailable [...] Diagnoses Date Provider Providers Copied on Encounter [facility], [address], [place], [place], [id number], [place] tel:[phone] [facility] No Information 8 Duncan Ludwig. [address] [place], [address], [place]. Office/outpa tient visit,[facility], [facility], [address], [place], [id number], [place] tel:[phone] [facility] ADHD f/u (chief complaint) refill on Stratera (chief complaint) ADHD 8 Boo Tong. [address] [place], [address], [place]. tel:[phone] Referring Provider: Alycia De La Garza, [address] [place], [address]. tel:[phone] Office/outpa tient visit,[facility], [facility], [address], [place], [id number], [place] tel:[phone] [facility] dizziness (chief complaint) stomach pain (chief complaint) UTIVAGINITIS NOS 7 Duncan Ludwig. [address] [place], [address], [place]. Referring Provider: Vani Song, [address] [place], [address]. Office/outpa tient visit,[facility], [facility], [address], [place], [place], [id number], [place] tel:[phone] [facility] No Information 7 Duncan Ludwig. [address] [place], [address], [place]. Referring Provider: Vani Song, [address] [place], [address]. Office/outpa tient visit,[facility], [facility], [address], [place], [id number], [place] tel:[phone] [facility] dry cough (chief complaint) headache (chief complaint) sore throat (chief complaint) body aches (chief complaint) ACUTE URI MULT SITES NEC 7 Boo Tong. [address] [place], [address], [place]. tel:[phone] Referring Provider: Alycia De La Garza, [address] [place], [address]. tel:[phone] Office/outpa tient visit,[facility], [address], [place], [place], [id number], [place] tel:[phone] [facility] chest pain (chief complaint) cough (chief complaint) runny nose (chief complaint) refill on Straterra (chief complaint) CROUPATTN DEFICIT W HYPERACT 7 Boo Alycia. [address] [place], [address], [place]. tel:[phone] Referring Provider: lAycia De La Garza, [address] [place], [address]. tel:[phone] Office/outpa tient visit,[facility], [address], [place], [id number], [place] tel:[phone] [facility] No Information 6 Boo Tong. [address] [place], [address], [place]. tel:[phone] Family History Family Member Type Diagnosis Age At Onset No Information Payers Payer name Insurance type Covered alliance party ID Aaron molina(s) [facility] PPO CI [id number] Social History Type Description Quantity Date Captured [...]
[2024-08-29 15:35] VITALS: BP 119/82; PULSE 79; RESP 16; TEMP 36.5; O2SAT 100; BMI 20.5
--- OUTSIDE RECORDS SUMMARY | 2024-08-29 15:37 | XMS_ITS | Data Portability ---
Author Organization [facility] Ann Garrard [facility] Jaylin Piedra [facility] Address [address] [address] Care Team Providers Care It Infrastructure Project Manager Name Role Phone TIFFANIE ARELLANO Primary Care [...] rapid flu (A+B), PCR [email or web address] [facility] ([facility]), [address] [place], [address], 5 12:20:07 test, urine [email or web address] [facility] ([facility]), [address] [place], [address], 4 12:25:45 urinalysis, complete [email or web address] [facility] ([facility]), [address] [place], [address], 4 13:34:43 culture, urine 2023 024 [employer] [facility], [address] [place] [address], [facility] [address] [place], [address], 4 19:20:50 Referral None recorded. Procedures None recorded. Surgeries None recorded. Imaging None recorded. Medication Orders Reglan 10 mg tablet 2024 025 [facility] #[id number], [address] [facility], [facility] [address], [address], 5 10:20:26 prednisone 20 mg tablet 2024 025 [facility] #[id number], [address] [facility], [facility], [place], [address], 5 10:20:26 Reglan 10 mg tablet 2023 025 [facility], [address], [place], [address], 5 09:48:57 Augmentin 875 mg-125 mg tablet 2023 024 [facility] 15, [address], [place], [address], 4 12:08:31 prednisone 20 mg tablet 2022 024 [facility] 15, [address], [place], [address], 4 12:09:47 amoxicillin 875 mg tablet [address], [address], [place], [address], 4 12:08:09 Patient TargetsNo targets recorded. Patient InstructionsNo instructions recorded. Reason for Referral None Reported. Results Created Date Observation Date Name Description Value Unit Range Abnormal Flag Note LastModifiedBy Organization Detail LastModifiedTime 04/02/1904/03/2023 CULTU RE, URINE , ROUTI NE culture, urine, routine SEE NOTE CULTU RE, URINE , ROUTI NE Micro Numbe r: [id number] Test Statu s: Final Speci men [...] Cultu re Trans port Tube. Not Available [facility] [address], [place], [address], 04/03/2023 19:20:50 04/02/19 24 04/02/2023 urina lysis , compl ete color yellow Not Available [facility] ([facility]) [address] [place], [address], 04/02/2023 12:56:52 04/02/19 24 04/02/2023 urina lysis , compl ete clarity clear clear Not Available [facility] ([facility]) [address] [place], [address], 04/02/2023 12:56:52 04/02/19 24 04/02/2023 urina lysis , compl ete glucose neg negati ve Not Available [facility] ([facility]) [address] [place], [address], 04/02/2023 12:56:52 04/02/19 24 04/02/2023 urina lysis , compl ete bilirubin neg negati ve Not Available [facility] ([facility]) [address] [place], [address], 04/02/2023 12:56:52 04/02/19 24 04/02/2023 urina lysis , compl ete ketones neg negati ve Not Available [facility] ([facility]) [address] [place], [address], 04/02/2023 12:56:52 04/02/19 24 04/02/2023 urina lysis , compl ete specific gravity 1.015 1.005- 1.025 Not Available [facility] ([facility]) [address] [place], [address], 04/02/2023 12:56:52 04/02/19 24 04/02/2023 urina lysis , compl ete pH 7.0 5.0-7. 0 Not Available [facility] ([facility]) [address] [place], [address], 04/02/2023 12:56:52 04/02/19 24 04/02/2023 urina lysis , compl ete protein neg Not Available [facility] ([facility]) [address] [place], [address], 04/02/2023 12:56:52 04/02/19 24 04/02/2023 urina lysis , compl ete uro 0.2 Not Available [facility] ([facility]) [address] [place], [address], 04/02/2023 12:56:52 04/02/19 24 04/02/2023 urina lysis , compl ete nitrate neg negati ve Not Available [facility] ([facility]) [address] [place], [address], 04/02/2023 12:56:52 04/02/19 24 04/02/2023 urina lysis , compl ete blood 1+ negati ve abnormal Not Available [facility] ([facility]) [address] [place], [address], 04/02/2023 12:56:52 04/02/19 24 04/02/2023 urina lysis , compl ete leukocytes neg negati ve Not Available [facility] ([facility]) [address] [place], [address], 04/02/2023 12:56:52 04/02/19 24 04/02/2023 urina lysis , compl ete WBC 1-2 0 abnormal Not Available [facility] ([facility]) [address] [place], [address], 04/02/2023 12:56:52 04/02/19 24 04/02/2023 urina lysis , compl ete RBC 4-6 0 abnormal Not Available [facility] ([facility]) [address] [place], [address], 04/02/2023 12:56:52 04/02/19 24 04/02/2023 urina lysis , compl ete epi cells 6-8 0 abnormal Not Available [facility] [address] [place], [address], 04/02/2023 12:56:52 04/02/19 24 04/02/2023 urina lysis , compl ete bacteria neg Not Available [facility] [address] [place], [address], 04/02/2023 12:56:52 04/02/19 24 04/02/2023 urina lysis , compl ete other neg Not Available [facility] ([facility] [address] [place], [address], 04/02/2023 12:56:52 07/15/19 24 07/15/2023 pregn leyla test, urine HCG negati ve Not Available [facility] ([facility]) [address] [place], [address], 07/15/2023 12:20:06 03/19/19 25 03/19/2024 rapid flu (A+B) , PCR Influenza A positi ve Not Available [facility] ([facility]) [address] [place], [address], 03/19/2024 11:51:56 03/19/19 25 03/19/2024 rapid flu (A+B) , PCR Influenza B negati ve Not Available [facility] ([facility]) [address] [place], [address], 03/19/2024 11:51:56 Result Notes None recorded. Problems Name Problem SNOMED Code Status Onset Date Resolution Date Notes Provider Name and Address Organization Details Recorded Time Sickle cell trait 20001796 Active 2021 Sickle Cell Trait; 022 3:38PM by Jere Ojeda, Office Visit; Promote d; acuity set as *; Not Available [facility] 3 03:12:39 Acute viral bronchitis 534268233 Active 2022 Willian Sherman MD [address] [place] [address], [address] [place] [address] , [facility] 3 17:53:14 Influenza-li ke illness 11514812 Active 2024 Willian Sherman MD [address] [place] [address], [address] [place] [address] , [facility] 5 09:59:23 Influenza caused by Influenza A virus 585074922 Active 2024 Willian Sherman MD [address] [place] [address], [address] [place] [address] , [facility] 5 10:18:52 Nausea and vomiting 12585871 Active 2024 Willian Sherman MD [address] [place] [address], [address] , [facility] 5 10:19:16 Problem Notes None recorded. Medical Equipment None Reported. Allergies Allergen ID Allergen Name Allergen Category Reaction Reaction Severity Criticality Documentation Date Start Date Code Code System Note Provider Name and Address Organization Details Recorded Time 68080 Zofran medicatio n vomiting Not available Not available 09/08/2022 28372 RxNorm React ion: Vomit ing; Comme nt: Recor ded 08/15 3:38P M by Charles Ojeda, Offic e Visit ; Bhavin frausto; Jerry balbuena ce: *; Reaso n: Drug aller gy; ; Not Available [facility] 3 02:28:32 98919 acetamino phen / hydrocodo ne medicatio n hallucina tions Not available Not available 09/08/2022 52583 2 RxNorm React ion: delus ions and tics; Comme nt: Recor ded 08/15 3:38P M by Charles Ojeda, Offic e Visit ; Promo lisbet; Signi sree ce: *; Reaso n: Drug aller gy; ; Not Available [facility] 3 02:28:32 86135 Bactrim medicatio n dizziness Not available Not available 09/08/2022 82097 9 RxNorm React ion: Dizzi ness, Vomit ing; Comme nt: Recor ded 08/15 3:38P M by Charles Ojeda, Offic e Visit ; Promo lisbet; Signjet balbuena ce: *; Reaso n: Drug aller gy; ; Not Available [facility] 3 02:28:32 Medications Name Sig Start Date [...] Updated DateTime 5 147.32 cm 19.9 kg/m2 90552.3 8 g 99 % 99 % 117 /min 98.3 [degF] 110/60 mm[Hg] Radha Saez [facility] 5 09:51:57 Date Recorded Body height Body mass index (BMI) Body weight Oxygen saturation Oxygen saturation in Arterial blood by Pulse oximetry Heart rate Respiratory rate Body temperature Systolic And Diastolic Provider Name and Address Organization Details Last Updated DateTime 4 147.32 cm 21.5 kg/m2 83881.0 1 g 98 % 98 % 67 /min 20 /min 97.1 [degF] 115/80 mm[Hg] Capri Seymour [facility] 4 13:06:28 Date Recorded Body height Body mass index (BMI) Body weight Oxygen saturation Oxygen saturation in Arterial blood by Pulse oximetry Heart rate Respiratory rate Body temperature Systolic And Diastolic Provider Name and Address Organization Details Last Updated DateTime 3 147.32 cm 24.5 kg/m2 62157.7 1 g 95 % 95 % 89 /min 20 /min 97.3 [degF] 110/78 mm[Hg] JUDY MUELLER [facility] 3 12:52:24 Date Recorded Body height Body mass index (BMI) Body weight Oxygen saturation Oxygen saturation in Arterial blood by Pulse oximetry Heart rate Respiratory rate Body temperature Systolic And Diastolic Provider Name and Address Organization Details Last Updated DateTime 4 147.32 cm 19.6 kg/m2 37114.6 8 g 99 % 99 % 99 /min 16 /min 98.1 [degF] 110/70 mm[Hg] Tim Corona [facility] 4 12:16:51 Date Recorded Body height Body mass index (BMI) Body weight Oxygen saturation Oxygen saturation in Arterial blood by Pulse oximetry Heart rate Respiratory rate Body temperature Systolic And Diastolic Provider Name and Address Organization Details Last Updated DateTime 3 147.32 cm 21.7 kg/m2 82294.6 1 g 97 % 97 % 83 /min 20 /min 97.5 [degF] 105/65 mm[Hg] Capri Seymour [facility] 3 17:43:48 Social History Question Answer Notes LastModified by Organizat ion Details LastModified Time Tobacco Smoking Status Current Every Day Smoker Tim Corona [facility] 07/15/2023 12:11:14 At What Age Did You Start Smoking Tobacco? 15 [email or web address] Information not available 07/15/2023 How Many Years Have You Smoked Tobacco? 13 [email or web address] Information not available 07/15/2023 Sex: Unknown Functional [...] ICD10 Code Diagnosis Note [id number] MARTA GRAJEDA [facility] ([facility]) [address] [place] [address] 05/28/2022 12:23:33 06/02/2022 15:55:37 Toothache 80109182 K08.89 Infection of tooth 21904 8007 K04.7 [id number] Willian Sherman MD [facility] ([facility]) [address] [place] [address] 01/31/2023 17:14:40 02/07/2023 11:12:49 Acute viral bronchitis 775907881 J20.8 [id number] SHRUTHI ACOSTA [facility] ([facility]) [address] [place] [address] 5 04/02/2023 12:30:13 04/02/2023 13:59:06 Dysuria 86449992 R30.0 Start Augmentin BID x7 days, take [...] up. Patient agreeable to plan of care. [id number] MARTA NIEVES [facility] ([facility]) [address] [place] [address] 07/15/2023 11:57:51 07/15/2023 13:04:18 detection examination 77955622 Z32.00 test negative. Migraine 42288741 G43.90 9 Offered injections today but pt prefers to have an oral anti emetic and then she can take ibuprofen when she gets home. [id number] Willian Sherman MD [facility] ([facility]) [address] [place] [address] 03/19/2024 09:36:39 03/19/2024 13:15:42 Influenza-like illness 07304299 B34.9 Influenza caused by Influenza A virus 722202654 J09.X2 Recommend supportive care. Push fluids, Tylenol/ib uprofen to help with fever and discomfort . May return back to normal activity when fever free for 24 hours and start to feel better. Will provide prednisone at the patient's request. Zofran as needed as below to help with nausea. Nausea and vomiting 1811 1999 R11.2 Health Concerns Section Related Observation LastModified by Organization Detai ls LastModified Time None Recorded Concern Status LastModified by Organization Details LastModified Time None Recorded Advance Directives Directive None Recorded Payers Insurance Date Sequence Insurance Name Policy Number Policy Martinez Covered Member ID Martinez Member ID Guarantor Name 03/19/2024 1 [place] Primitivo Beltrán [id number] Primitivo Beltrán 03/19/2024 [place] [facility] Primitivo Beltrán [id number] Primitivo Beltrán Notes Date Note Type Note Provider Name and Address Organization Details Recorded Time 05/28/2022 text/html Throat PainRepor lisbet bypatient.Location:rig ht Quality:shooting; throbbing; pressure; radiates to ear; constant Severity:severe; worsening Timing:gradual PATIENT REPORTS RIGHT SIDED FACIAL, JAW, AND THROAT PAIN FOR ABOUT 1 WEEK. YESTERDAY IT BECAME SIGNIFICANTLY WORSE AND SWOLLEN. MARTA GRAJEDA [address] [place], [address], [facility] 05/28/2022 13:29:12 01/31/2023 text/html Upper Respirator y SymptomsReported bypatient.Location:hea d; chest; throat; nasal Quality:productive cough;congested;hurts to swallow Severity:no pain Duration:symptoms lasting less than 2 weeks Onset/Timing:gradual Associated Symptoms:chest pain;yellow sputum;shortness of breath;sore throat;headache Willian Sherman MD [address] [place], [address], [facility] 02/03/2023 08:21:33 04/02/2023 text/html [...] Expresses concerns for UTI. SHRUTHI ACOSTA [address] [place], [address], [facility]. 04/02/2023 13:36:45 07/15/2023 text/html [...] is requesting a test. MARTA NIEVES [address] [place], [address], [facility] 07/15/2023 12:49:06 03/19/2024 text/html walk inwoke with symptoms N/D, cough. Patient reports subjective fevers. Willian Sherman MD [address] [place], [address], [facility]. 03/26/2024 09:12:30 OBGyn Episode No OBEpisode recorded.
--- NOTE | 2024-08-29 15:41 | W.ED.NAVMDI ---
HPI - Nausea/Vomiting/Diarrhea General: Chief complaint: Nausea/Vomiting/Diarrhea Stated complaint: nausea Time Seen by Provider: 08/29/24 15:34 History of Present Illness: Associated symtoms: Denies chest pain or dysuria Related Data Home Medications ?Medication ?Instructions ?Recorded ?Confirmed ascorbate calcium (vitamin C) 500 500 mg PO DAILY 12/26/20 05/11/24 mg tablet ferrous sulfate 325 mg (65 mg 325 mg PO BID PRN 12/31/22 05/11/24 iron) tablet (Iron (ferrous sulfate)) Previous Rx's ?Medication ?Instructions ?Recorded ibuprofen 800 mg tablet 800 mg PO TID PAIN #60 tabs 12/30/23 norethindrone (contraceptive) 0.35 0.35 mg PO DAILY 3 months #84 tabs 04/17/24 mg tablet hydroxyzine HCl 10 mg tablet 10 mg PO .q hs PRN anxiety #30 tabs 05/11/24 promethazine 25 mg tablet 25 mg PO TID PRN nausea and 08/27/24 vomiting #7 tabs Allergies Allergy/AdvReac Type Severity Reaction Status Date / Time lanolin (From Super Duper Allergy Mild ALGY-Rash Verified 04/17/24 14:34 Diaper Doo) ondansetron (From Zofran) Allergy Mild Vomit Verified 04/17/24 14:34 petrolatum,white (From Super Allergy Mild ALGY-Rash Verified 04/17/24 14:34 Duper Diaper Doo) hydrocodone (From Vicodin) Allergy Unknown unk Verified 04/17/24 14:34 acetaminophen (From Vicodin) Allergy hallucinati Verified 04/17/24 14:34 ons diphenhydramine (From Allergy ADR-Vomitin Verified 08/27/24 10:06 Benadryl) g latex Allergy ADR-Itching Verified 04/17/24 14:34 sulfamethoxazole (From AdvReac Mild vomiting, Verified 04/17/24 14:34 Bactrim) almost blacked out trimethoprim (From Bactrim) AdvReac Mild vomiting, Verified 04/17/24 14:34 almost blacked out Review of Systems Const: Denies: fever(s) or chills Card: Denies: chest pain Resp: Denies: dyspnea GI: Denies: abdominal pain : Denies: dysuria, urinary frequency or urinary urgency Musc: Denies: neck pain or back pain Skin/Breast: Denies: rash PFSH ED PFSH: Medical History Psychiatric care No pertinent past medical history neghx: dm,htn,thyroid,dvt/pe Abnormal uterine bleeding Surgical History No pertinent past surgical history Family History Grandmother Hypertension Maternal grandmother Diabetes Maternal grandmother Denies family history of Colon cancer Ovarian cancer Clotting disorder Heart disease Hyperlipidemia Breast cancer Anesthesia complication Bleeding disorder Uterine cancer Thyroid disease Stroke Social History Smoking and tobacco/nicotine status: current every day tobacco/nicotine user (3-4-cig daily) Substance/Drug Use: never Female Reproductive History: Spontaneous abortions: No Physical Exam Const: COMMON NORMALS: no acute distress GENERAL APPEARANCE: cooperative and comfortable ORIENTATION/CONSCIOUSNESS: Yes awake, Yes oriented to person, Yes oriented to place and Yes oriented to time HENMT: COMMON NORMALS: normocephalic, atraumatic and hearing grossly normal bilaterally HEAD & SCALP: normocephalic and atraumatic Resp: COMMON NORMALS: normal respiratory effort, No retractions, No use of accessory muscles and clear to auscultation bilaterally AUSCULTATION: clear to auscultation bilaterally Cardio: COMMON NORMALS: regular rate, regular rhythm and No murmurs present (Cardio) RATE: regular rate RHYTHM: regular rhythm GI: COMMON NORMALS: Soft to palpation and No hepatosplenomegaly present AUSCULTATION: Yes normoactive bowel sounds PALPATION: Yes Soft to palpation, No Tenderness to palpation present (GI), No Guarding due to palpation present (GI) and Yes No hepatosplenomegaly present Extremity: COMMON NORMALS: normal to inspection, capillary refill normal, no clubbing, cyanosis or edema, no calf tenderness and no pedal edema Neuro: SENSORIUM/ORIENTATION: Yes oriented to person, Yes oriented to place and Yes oriented to time Skin: COMMON NORMALS: no rashes or lesions noted GENERAL SKIN EXAM: no rashes or lesions noted Course Vital Signs: Vital signs: Vital Signs Temperature 97.7 F 08/29/24 15:35 Pulse Rate 79 08/29/24 15:35 Respiratory Rate 16 08/29/24 15:35 Blood Pressure 119/82 08/29/24 15:35 Pulse Oximetry 100 08/29/24 15:35 Oxygen Delivery Me thod Room Air 08/29/24 15:35 Discharge Plan Discharge Condition: Stable Prescriptions: No Action ascorbate calcium (vitamin C) 500 mg tablet 500 mg PO DAILY Iron (ferrous sulfate) 325 mg (65 mg iron) tablet 325 mg PO BID PRN hydroxyzine HCl 10 mg tablet 10 mg PO .q hs PRN (Reason: anxiety) Qty: 30 3RF Rx Instructions: Take one tablet daily at bedtime, if needed for anxiety norethindrone (contraceptive) 0.35 mg tablet 0.35 mg PO DAILY 90 Days Qty: 84 3RF ibuprofen 800 mg tablet 800 mg PO TID Qty: 60 1RF promethazine 25 mg tablet 25 mg PO TID PRN (Reason: nausea and vomiting) Qty: 7 0RF Referrals: Aidan Guzmán MD [Primary Care Provider, Family Practice] Print Language: Guatemalan Coding Level of Care Code ED Band Saw Operator for Melia Soni
[2024-08-29 15:51] LABS: Hematocrit 39.4 % (36-47); Hemoglobin 13.70 g/dL (11.27-16.99); Mean Corpuscular HGB Conc 34.8 g/dL (30-55); Mean Corpuscular Hemoglobin 31.9 pg (27-33); Mean Corpuscular Volume 91.6 fl (85-98); Nucleated Red Blood Cells % 0 %; Platelet Count 254 10^3/cmm (157-399); Red Blood Count 4.30 10^6/uL (3.85-5.65); White Blood Count 10.25 10^3/uL (3.29-11.43)
--- NOTE | 2024-08-29 15:56 | ED_ITS ---
HPI - Nausea/Vomiting/Diarrhea 2 General: Chief complaint: Nausea/Vomiting/Diarrhea Stated complaint: nausea Time Seen by Provider: 08/29/24 15:34 History of Present Illness: Patient presents with complaints of severe nausea and diaphoresis that began a few days ago. She reports feeling 'extremely sick' to her stomach, unable to hold down food, and experiencing episodes where she becomes 'drenched from head to toe in sweat' and feels 'clammy.' Patient describes a sensation of 'shaking inside' her stomach. She notes that she had a headache with nausea during her previous visit, but currently only has nausea without headache. The nausea occurs with any food intake, not specific to certain foods. She attempted to eat this morning but felt like vomiting after a few bites. Patient denies fever or diarrhea and reports normal bowel movements. She also denies any similar episodes in the past. Patient reports daily cannabis use, typically every 2.5-3 hours, though she has been trying to time and limit her usage. She denies any tick bites. She takes a progesterone-based oral contraceptive (generic) daily and hydroxyzine as needed for anxiety. No new medications. Patient denies . Medical history includes sickle cell trait. Family history significant for diabetes and hypoglycemia. Related Data Home Medications ?Medication ?Instructions ?Recorded ?Confirmed ascorbate calcium (vitamin C) 500 500 mg PO DAILY 12/1208/29/24 mg tablet ferrous sulfate 325 mg (65 mg 325 mg PO BID 12/31/22 0 08/29/24 iron) tablet (Iron (ferrous sulfate)) norethindrone (contraceptive) 0.35 0.35 mg PO DAILY 08/29/24 mg tablet (Jencycla) Previous Rx's ?Medication ?Instructions ?Recorded ibuprofen 800 mg tablet 800 mg PO TID PAIN #60 tabs 12/30/23 hydroxyzine HCl 10 mg tablet 10 mg PO .q hs PRN anxiet y #30 tabs 05/11/24 promethazine 25 mg tablet 25 mg PO TID PRN nausea and 08/27/24 vomiting #7 tabs promethazine 12.5 mg tablet 12.5 mg PO Q6H PRN nausea and 08/29/24 vomiting #14 tabs Allergies Allergy/AdvReac Type Severity Reaction Status Date / Time lanolin (From The Invisible Armor Duper Allergy Mild ALGY-Rash Verified 04/17/24 14:34 Diaper Doo) ondansetron (From Zofran) Allergy Mild Vomit Verified 04/17/24 14:34 petrolatum,white (From Super Allergy Mild ALGY-Rash Verified 04/17/24 14:34 Duper Diaper Doo) hydrocodone (From Vicodin) Allergy Unknown unk Verified 04/17/24 14:34 acetaminophen (From Vicodin) Allergy hallucinati Verified 04/17/24 14:34 ons diphenhydramine (From Allergy ADR-Vomitin Verified 08/27/24 10:06 Benadryl) g latex Allergy ADR-Itching Verified 04/17/24 14:34 sulfamethoxazole (From AdvReac Mild vomiting, Verified 04/17/24 14:34 Bactrim) almost blacked out trimethoprim (From Bactrim) AdvReac Mild vomiting, Verified 04/17/24 14:34 almost blacked out Review of Systems 2 General: Reports: 10 or more systems reviewed and unremarkable except in HPI and below PFSH ED 2 PFSH: Medical History (Updated 08/29/24 @ 17:35 by Topher Olivares DO) Psychiatric care No pertinent past medical history neghx: dm,htn,thyroid,dvt/pe Abnormal uterine bleeding Surgical History No pertinent past surgical history Family History Grandmother Hypertension Maternal grandmother Diabetes Maternal grandmother Denies family history of Colon cancer Ovarian cancer Clotting disorder Heart disease Hyperlipidemia Breast cancer Anesthesia complication Bleeding disorder Uterine cancer Thyroid disease Stroke Social History Smoking and tobacco/nicotine status: current every day tobacco/nicotine user (3-4-cig daily) Substance/Drug Use: never Female Reproductive History: Spontaneous abortions: No Physical Exam 2 Const: COMMON NORMALS: no acute distress, patient oriented x3, alert and well nourished HENMT: COMMON NORMALS: normocephalic HEAD & SCALP: normocephalic Eye: COMMON NORMALS: Equal, round and reactive pupils present, EOMs intact bilaterally and conjunctivae normal CONJUNCTIVA: Yes conjunctivae normal P UPIL: Yes Equal, round and reactive pupils present Chest: COMMONS NORMALS: normal inspection of the chest and normal palpation of entire chest wall Resp: COMMON NORMALS: normal respiratory effort, No retractions, No use of accessory muscles, clear to auscultation bilaterally and percussion normal A USCULTATION: clear to auscultation bilaterally PERCUSSION: percussion normal Cardio: COMMON NORMALS: regular rate and regular rhythm RATE: regular rate RHYTHM: regular rhythm GI: COMMON NORMALS: Normal to inspection, nondistended, normoactive bowel sounds present, Soft to palpation, non-tender, No hepatosplenomegaly present, no masses and no bruits PALPATION: Yes Soft to palpation and Yes No hepatosplenomegaly present : COMMON NORMALS: Yes no CVA tenderness BLADDER/KIDNEY EXAM: Yes no CVA tenderness Back/Pelvis: COMMON NORMALS: no CVA tenderness Extremity: COMMON NORMALS: normal to inspection, full ROM, capillary refill normal, no joint enlargement, no clubbing, cyanosis or edema, no calf tenderness and no pedal edema Neuro: COMMON NORMALS: patient oriented x3 SENSORIUM/ORIENTATION: Yes alert Skin: COMMON NORMALS: no rashes or lesions noted, turgor normal and no jaundice GENERAL SKIN EXAM: no rashes or lesions noted and turgor normal Course 2 Vital Signs: Vital signs: Vital Signs Temperature 97.7 F 08/29/24 15:35 Pulse Rate 79 08/29/24 15:35 Respiratory Rate 16 08/29/24 15:35 Blood Pressure 119/82 08/29/24 15:35 Pulse Oximetry 100 08/29/24 15:35 Oxygen Delivery Me thod Room Air 08/29/24 15:35 MDM - Nausea/Vomiting/Diarrhea Medical Decision Making 1. Acute Nausea with Diaphoresis - Differential diagnoses include cannabis hyperemesis syndrome, alpha-gal syndrome, viral gastroenteritis, medication side effect, or other GI pathology - Plan: Administer IV fluids and IV anti-emetics for symptomatic relief - Patient advised she will need transportation home due to sedating effects of anti-emetic medication; patient reports she has arranged for a taxi 2. Suspected Cannabis Hyperemesis Syndrome - Patient reports daily cannabis use, which is consistent with this diagnosis - Symptoms of persistent nausea, vomiting, and the inability to tolerate food are classic presentations - Plan: Educated patient about cannabis hyperemesis syndrome and that cessation of cannabis use is the definitive treatment - Will provide patient with educational materials about this condition 3. Rule out Alpha-gal Syndrome - Plan: Order testing for alpha-gal syndrome to rule out meat intolerance as a cause of symptoms 4. Follow-up: - Patient to return if symptoms worsen or fail to improve with treatment - Recommend follow-up visit in 1-2 weeks to assess response to interventions - Strongly advised reduction or cessation of cannabis use to determine if symptoms resolve Patient's symptoms totally resolved while in the department and her labs were mainly normal or nondiagnostic I think given the frequency of marijuana use and chronicity I think there is very good chance patient has hyper emesis cannabis syndrome I have discussed this entity with her as well as the importance of follow-up will continue to treat her symptoms and have her follow-up she was given strict return precautions as well Lab Data 08/29/24 15:43 08/29/24 15:43 Laboratory Results WBC 10.25 10^3/uL (3.29-11.43) 08/29/24 15:43 RBC 4.30 10^6/uL (3.85-5.65) 08/29/24 15:43 Hgb 13.70 g/dL (11.27-16.99) 08/29/24 15:43 Hct 39.4 % (36-47) 08/29/24 15:43 MCV 91.6 fl (85-98) 08/29/24 15:43 MCH 31.9 pg (27-33) 08/29/24 15:43 MCHC 34.8 g/dL (30-55) 08/29/24 15:43 RDW 13.4 % (12.1-15.1) 08/29/24 15:43 Plt Count 254 10^3/cmm (157-399) 08/29/24 15:43 MPV 9.4 fL (7.4-10.4) 08/29/24 15:43 Neut % (Auto) 56.9 % 08/29/24 15:43 Lymph % (Auto) 34.9 % 08/29/24 15:43 [place] % (Auto) 6.1 % 08/29/24 15:43 Eos % (Auto) 1.3 % 08/29/24 15:43 Baso % (Auto) 0.4 % 08/29/24 15:43 Neut # (Auto) 5.83 10^3/uL (1.8-7.7) 08/29/24 15:43 Lymph # (Auto) 3.6 10^3/uL (0.8-4.8) 08/29/24 15:43 [place] # (Auto) 0.6 10^3/uL (0.2-0.9) 08/29/24 15:43 Eos # (Auto) 0.1 10^3/uL (0.0-0.8) 08/29/24 15:43 Baso # (Auto) 0.0 10^3/uL (0.0-0.1) 08/29/24 15:43 Nucleated RBC % (auto) 0 % 08/29/24 15:43 Nucleated RBCs # 0.0 /100WBC 08/29/24 15:43 Sodium 138 mmol/L (136-145) 08/29/24 15:43 Potassium 3.6 mmol/L (3.5-5.1) 08/29/24 15:43 Chloride 99 mmol/L (98-107) 08/29/24 15:43 Carbon Dioxide 23 mmol/L (22-29) 08/29/24 15:43 Anion Gap 19.6 (5-19) H 08/29/24 15:43 BUN 13 mg/dL (6-20) 08/29/24 15:43 Creatinine 0.7 mg/dL (0.5-0.9) 08/29/24 15:43 GFR Calculation 99.6 mL/min (90-130) 08/29/24 15:43 Glucose 98 mg/dL (65-115) 08/29/24 15:43 Calculated Osmolality 286 mOsm/kg (285-295) 08/29/24 15:43 Calcium 9.3 mg/dL (8.5-10.5) 08/29/24 15:43 Magnesium 1.9 mg/dL (1.7-2.3) 08/29/24 15:43 Total Bilirubin 0.4 mg/dL (0.15-1.2) 08/29/24 15:43 AST 14 U/L (0-32) 08/29/24 15:43 ALT 17 U/L (0-33) 08/29/24 15:43 Alkaline Phosphatase 46 U/L (35-105) 08/29/24 15:43 Total Protein 7.1 g/dL (6.6-8.7) 08/29/24 15:43 Albumin 4.5 g/dL (3.5-5.2) 08/29/24 15:43 Globulin 2.6 g/dL (1.3-4.6) 08/29/24 15:43 HCG, Qual Negative (Negative) 08/29/24 15:55 Urine Color Yellow (Yellow) 08/29/24 15:55 Urine Appearance Cloudy (CLEAR) A 08/29/24 15:55 Urine pH 7.5 (5-7) 08/29/24 15:55 Ur Specific [place] 1.013 (1.005-1.030) 08/29/24 15:55 Urine Protein Trace (Negative) A 08/29/24 15:55 Urine Glucose (UA) Negative (Normal) 08/29/24 15:55 Urine Ketones Negative (Negative) 08/29/24 15:55 Urine Blood Negative (Negative) 08/29/24 15:55 Urine Nitrate Negative (Negative) 08/29/24 15:55 Urine Bilirubin Negative (Negative) 08/29/24 15:55 Urine Urobilinogen 0.2 mg/dL (Negative) 08/29/24 15:55 Ur Leukocyte Esterase Negative (Negative) 08/29/24 15:55 Urine RBC 0-2 /hpf (0-2) 08/29/24 15:55 Urine WBC 0-5 /hpf (0-5) 08/29/24 15:55 Ur Squamous Epith Cells 0-5 /hpf (0-5) 08/29/24 15:55 Amorphous Sediment Not Reportable 08/29/24 15:55 Urine Bacteria None seen /hpf (NONE) 08/29/24 15:55 Hyaline Casts 0.40 /lpf 08/29/24 15:55 Urine Opiates Screen Negative ng/mL (Negative) 08/29/24 15:55 Ur Barbiturates Screen Negative ng/mL (Negative) 08/29/24 15:55 Ur Phencyclidine Scrn Negative ng/mL (Negative) 08/29/24 15:55 Ur Amphetamines Screen Negative ng/mL (Negative) 08/29/24 15:55 U Benzodiazepines Scrn Negative ng/mL (Negative) 08/29/24 15:55 Urine Cocaine Screen Negative ng/mL (Negative) 08/29/24 15:55 U Marijuana (THC) Screen Positive ng/mL (Negative) H 08/29/24 15:55 No radiology studies performed this visit Discharge Plan Discharge Patient Disposition: Home Clinical Impression: Cannabis hyperemesis syndrome concurrent with and due to cannabis abuse Condition: Stable Prescriptions: New promethazine 12.5 mg tablet 12.5 mg PO Q6H PRN (Reason: nausea and vomiting) Qty: 14 0RF No Action ascorbate calcium (vitamin C) 500 mg tablet 500 mg PO DAILY Iron (ferrous sulfate) 325 mg (65 mg iron) tablet 325 mg PO BID hydroxyzine HCl 10 mg tablet 10 mg PO .q hs PRN (Reason: anxiety) Qty: 30 3RF Rx Instructions: Take one tablet daily at bedtime, if needed for anxiety ibuprofen 800 mg tablet 800 mg PO TID Qty: 60 1RF promethazine 25 mg tablet 25 mg PO TID PRN (Reason: nausea and vomiting) Qty: 7 0RF norethindrone (contraceptive) [Jencycla] 0.35 mg tablet 0.35 mg PO DAILY Discharge Orders: Discharge ED (Routine); Ordered 08/29/24 Ordered By: Topher Olivares Referrals: Aidan Guzmán MD [Primary Care Provider, [facility]] Discharge Diet: Usual diet Discharge Activity: Resume usual activity Patient Instructions: Opioid Safety, Pain Management, Patient Portal & Rodo Instructions Activity Restrictions/Additional Instructions: 1. Rest, fluids and discontinue marijuana use. 2. Follow up with PCP for recheck and to obtain other test results (Alpha GAL testing) 3. Return for new or worsening symptoms. Print Language: Turkmen Coding Level of Care Code ED Suction Plate Roller Hand for Melia Soni
[2024-08-29 16:08] LABS: Alanine Aminotransferase 17 U/L (0-33); Albumin Level 4.5 g/dL (3.5-5.2); Alkaline Phosphatase 46 U/L (35-105); Anion Gap 19.6 (5-19); Aspartate Amino Transferase 14 U/L (0-32); Blood Urea Nitrogen 13 mg/dL (6-20); Calcium 9.3 mg/dL (8.5-10.5); Carbon Dioxide 23 mmol/L (22-29); Chloride 99 mmol/L (98-107); Creatinine Clr Calc Pharmacy 83.9649; Globulin 2.6 g/dL (1.3-4.6); Glucose 98 mg/dL (65-115); Osmolality Calculated 286 mOsm/kg (285-295); Potassium 3.6 mmol/L (3.5-5.1); Sodium 138 mmol/L (136-145); Total Protein 7.1 g/dL (6.6-8.7)
[2024-08-29 16:10] LABS: Glucose Urine UA Negative (Normal); Nitrate Urine Negative (Negative); Specific Gravity, Urine 1.013 (1.005-1.030)
[2024-08-29 16:11] LABS: HCG Qualitative Urine. Negative (Negative)
[2024-08-29 16:15] LABS: Add Urine Microscopic? YES
[2024-08-29 16:16] LABS: PCP Screen Urine Negative (Negative)
[2024-08-29 16:34] LABS: Magnesium 1.9 mg/dL (1.7-2.3)
[2024-09-01 16:49] LABS: Beef (27) IgE <0.10 kU/L; Beef Class 0; Lamb (F88) IgE <0.10 kU/L; Lamb Class 0; Pork (F26) IgE <0.10 kU/L
[2024-09-03 18:25] LABS: Galactose-alpha-1,3 IgE <0.10 kU/L (<0.10)
== END 2024-08-29 17:42 | disposition home or self-care (01) ==
PROVIDERS: Family Medicine; Emergency Provider Family Medicine; PCP Family Medicine
DX: R11.2 Nausea with vomiting, unspecified (principal); F12.10 Cannabis abuse, uncomplicated; F17.210 Nicotine dependence, cigarettes, uncomplicated
CPT/HCPCS: 36415; 80053; 80306; 81001; 81025; 83735; 85025; 86003; 86008; 96361; 96374; 99284; J0780; J7120

== ENCOUNTER 2025-01-13 06:05 | Emergency (ER) | payer MEDICAID, SELFPAY ==
--- OUTSIDE RECORDS SUMMARY | 2007-04-28 06:13 | XMS_ITS | Continuity of Care Document ---
Author Organization [facility] Address [address] [place] [address] Phone Care Team Providers Care Geological Engineering Teacher Name Role Phone Vani Song MD Unavailable Unavailable Medications Medication Instructions Dosage Effective Dates (start - stop) Status Comments Strattera 25 mg Cap 1 cap q am - Active nystatin 100,000 unit/g Topical Cream apply on affacted areas tid - Active Amoxil 400 mg/5 mL Oral Susp 1.5tsfbid x10 days - Active Strattera 25 mg Cap one capsule once a day in am - No Longer Active Procedures Procedure Date Office/outpatient visit,est, mod 2007 Office/outpatient visit,est, mod 2006 Urinalysis, non-automated, w/scope Office/outpatient visit,est, low 2006 Urinalysis, non-automated, w/scope Office/outpatient visit,est, mod 2006 Office/outpatient visit,est, mod 2006 Office/outpatient visit,new, mod 2005 Infcts antign, streptococcus Grp A Urinalysis, non-automated, w/scope Advance Directives Directive Yes / No Effective Date File Name No Information Encounters Encounter Description Practice Location Reason(s) For Visit Diagnoses Date Provider Providers Copied on Encounter [facility], [address], [place], [place], [id number], [place] tel:[phone] [facility] No Information 8 Duncan Ludwig. [address] [place], [address], [place]. Office/outpa tient visit,[facility], [facility], [address], [place], [id number], [place] tel:[phone] [facility] ADHD f/u (chief complaint) refill on Stratera (chief complaint) ADHD 8 Boo Tong. [address] [place], [address], [place]. tel:[phone] Referring Provider: Alycia De La Garza, [address] [place], [address]. tel:[phone] Office/outpa tient visit,[facility], [facility], [address], [place], [id number], [place] tel:[phone] [facility] dizziness (chief complaint) stomach pain (chief complaint) UTIVAGINITIS NOS 7 Duncan Ludwig. [address] [place], [address], [place]. Referring Provider: Vani Song, [address] [place], [address]. Office/outpa tient visit,[facility], [facility], [address], [place], [place], [id number], [place] tel:[phone] [facility] No Information 7 Duncan Ludwig. [address] [place], [address], [place]. Referring Provider: Vani Sogn, [address] [place], [address]. Office/outpa tient visit,[facility], [facility], [address], [place], [id number], [place] tel:[phone] [facility] dry cough (chief complaint) headache (chief complaint) sore throat (chief complaint) body aches (chief complaint) ACUTE URI MULT SITES NEC 7 Boo Tong. [address] [place], [address], [place]. tel:[phone] Referring Provider: Alycia De La Garza, [address] [place], [address]. tel:[phone] Office/outpa tient visit,[facility], [address], [place], [place], [id number], [place] tel:[phone] [facility] chest pain (chief complaint) cough (chief complaint) runny nose (chief complaint) refill on Straterra (chief complaint) CROUPATTN DEFICIT W HYPERACT 7 Boo Alycia. [address] [place], [address], [place]. tel:[phone] Referring Provider: Alycia De La Garza, [address] [place], [address]. tel:[phone] Office/outpa tient visit,[facility], [address], [place], [id number], [place] tel:[phone] [facility] No Information 6 Boo Tong. [address] [place], [address], [place]. tel:[phone] Family History Family Member Type Diagnosis Age At Onset No Information Payers Payer name Insurance type Covered libertarian ID Aaron molina(s) [facility] PPO CI [id number] Social History Type Description Quantity Date Captured Comments Sex Female Smoking Status No Information Chief Complaint And Reason For Visit No Information Reason For Referral Reason For Referral No Information History Of Present Illness Encounter Date Complaint History Of Prese nt Illness No Information Functional Status Date Functional Assessmen t No Information Instructions Date Instruction Additional Infor mation Call if symptoms persist Related to UTI Assessments Type Assessment Date No Information Patient Care Teams Name Effective Dates (start - stop) Status Members No Information
--- OUTSIDE RECORDS SUMMARY | 2025-01-13 06:10 | XMS_ITS | Data Portability ---
Author Organization [facility] [place] [facility] Jaylin Piedra [facility] Address [address] [address] Care Team Providers Care Shoe Ironer Name Role Phone TIFFANIE ARELLANO Primary Care [...] rapid flu (A+B), PCR 2024 025 [email or web address] ([facility]), [address] [place], [address], 5 12:20:07 test, urine 2023 024 [email or web address] [facility] ([facility]), [address] [place], [address], 4 12:25:45 urinalysis, complete 2023 024 [email or web address] [facility] ([facility]), [address] [place], [address], 4 13:34:43 culture, urine 2023 024 [facility], [address] [place] [address], [facility] [address] [place], [address], 4 19:20:50 Referral None recorded. Procedures None recorded. Surgeries None recorded. Imaging None recorded. Medication Orders Reglan 10 mg tablet 2024 025 [facility] #[id number], [address] [facility], [facility] [address], [address], 5 10:20:26 prednisone 20 mg tablet 2024 025 [facility] #[id number], [address] [facility], [facility], [place], [address], 5 10:20:26 Reglan 10 mg tablet 2023 025 [facility], [address], [place], [address], 5 09:48:57 Augmentin 875 mg-125 mg tablet 2023 024 [facility] 15, [address], [place], [address], 4 12:08:31 prednisone 20 mg tablet 2022 024 [facility] 15, [address], [place], [address], 4 12:09:47 amoxicillin 875 mg tablet [address], [address], [place], [address], 4 12:08:09 Patient TargetsNo targets recorded. Patient InstructionsNo instructions recorded. Reason for Referral None Reported. Results Created Date Observation Date Name Description Value Unit Range Abnormal Flag Note LastModifiedBy Organization Detail LastModifiedTime 04/02/1904/03/2023 CULTU RE, URINE , ROUTI NE culture, urine, routine SEE NOTE CULTU RE, URINE , ROUTI NE Micro Numbe r: [id number] Test Statu s: Final Speci men [...] Cultu re Trans port Tube. Not Available [facility] [address], [place], [address], 04/03/2023 19:20:50 04/02/19 24 04/02/2023 urina lysis , compl ete color yellow Not Available [facility] ([facility]) [address] [place], [address], 04/02/2023 12:56:52 04/02/19 24 04/02/2023 urina lysis , compl ete clarity clear clear Not Available [facility] ([facility]) [address] [place], [address], 04/02/2023 12:56:52 04/02/19 24 04/02/2023 urina lysis , compl ete glucose neg negati ve Not Available [facility] ([facility]) [address] [place], [address], 04/02/2023 12:56:52 04/02/19 24 04/02/2023 urina lysis , compl ete bilirubin neg negati ve Not Available [facility] ([facility]) [address] [place], [address], 04/02/2023 12:56:52 04/02/19 24 04/02/2023 urina lysis , compl ete ketones neg negati ve Not Available [facility] ([facility]) [address] [place], [address], 04/02/2023 12:56:52 04/02/19 24 04/02/2023 urina lysis , compl ete specific gravity 1.015 1.005- 1.025 Not Available [facility] ([facility]) [address] [place], [address], 04/02/2023 12:56:52 04/02/19 24 04/02/2023 urina lysis , compl ete pH 7.0 5.0-7. 0 Not Available [facility] ([facility]) [address] [place], [address], 04/02/2023 12:56:52 04/02/19 24 04/02/2023 urina lysis , compl ete protein neg Not Available [facility] ([facility]) [address] [place], [address], 04/02/2023 12:56:52 04/02/19 24 04/02/2023 urina lysis , compl ete uro 0.2 Not Available [facility] ([facility]) [address] [place], [address], 04/02/2023 12:56:52 04/02/19 24 04/02/2023 urina lysis , compl ete nitrate neg negati ve Not Available [facility] ([facility]) [address] [place], [address], 04/02/2023 12:56:52 04/02/19 24 04/02/2023 urina lysis , compl ete blood 1+ negati ve abnormal Not Available [facility] ([facility]) [address] [place], [address], 04/02/2023 12:56:52 04/02/19 24 04/02/2023 urina lysis , compl ete leukocytes neg negati ve Not Available [facility] ([facility]) [address] [place], [address], 04/02/2023 12:56:52 04/02/19 24 04/02/2023 urina lysis , compl ete WBC 1-2 0 abnormal Not Available [facility] ([facility]) [address] [place], [address], 04/02/2023 12:56:52 04/02/19 24 04/02/2023 urina lysis , compl ete RBC 4-6 0 abnormal Not Available [facility] ([facility]) [address] [place], [address], 04/02/2023 12:56:52 04/02/19 24 04/02/2023 urina lysis , compl ete epi cells 6-8 0 abnormal Not Available [facility] [address] [place], [address], 04/02/2023 12:56:52 04/02/19 24 04/02/2023 urina lysis , compl ete bacteria neg Not Available [facility] [address] [place], [address], 04/02/2023 12:56:52 04/02/19 24 04/02/2023 urina lysis , compl ete other neg Not Available [facility] ([facility]) [address] [place], [address], 04/02/2023 12:56:52 07/15/19 24 07/15/2023 pregn leyla test, urine HCG negati ve Not Available [facility] ([facility]) [address] [place], [address], 07/15/2023 12:20:06 03/19/19 25 03/19/2024 rapid flu (A+B) , PCR Influenza A positi ve Not Available [facility] ([facility]) [address] [place], [address], 03/19/2024 11:51:56 03/19/19 25 03/19/2024 rapid flu (A+B) , PCR Influenza B negati ve Not Available [facility] ([facility]) [address] [place], [address], 03/19/2024 11:51:56 Result Notes None recorded. Problems Name Problem SNOMED Code Status Onset Date Resolution Date Notes Provider Name and Address Organization Details Recorded Time Sickle cell trait 26690950 Active 2021 Sickle Cell Trait; 022 3:38PM by Jere Ojeda, Office Visit; Promote d; acuity set as *; Not Available [facility] 3 03:12:39 Acute viral bronchitis 469362704 Active 2022 Willian Sherman MD [address] [place] [address], [address] [place] [address] , [facility] 3 17:53:14 Influenza-li ke illness 13289345 Active 2024 Willian Sherman MD [address] [place] [address], [address] [place] [address] , [facility] [place] 5 09:59:23 Influenza caused by Influenza A virus 008207626 Active 2024 Willian Sherman MD [address] [place] [address], [address] [place] [address] , [facility] [place] 5 10:18:52 Nausea and vomiting 35422422 Active 2024 Willian Sherman MD [address] [place] [address], [address] , [facility] [place] 5 10:19:16 Problem Notes None recorded. Medical Equipment None Reported. Allergies Allergen ID Allergen Name Allergen Category Reaction Reaction Severity Criticality Documentation Date Start Date Code Code System Note Provider Name and Address Organization Details Recorded Time 10577 Zofran medicatio n vomiting Not available Not available 09/08/2022 27090 RxNorm React ion: Vomit ing; Comme nt: Recor ded 08/15 3:38P M by Charles Ojeda, Offic e Visit ; Bhavin frausto; Jerry balbuena ce: *; Reaso n: Drug aller gy; ; Not Available [facility] 3 02:28:32 63278 acetamino phen / hydrocodo ne medicatio n hallucina tions Not available Not available 09/08/2022 72854 2 RxNorm React ion: delus ions and tics; Comme nt: Recor ded 08/15 3:38P M by Charles Ojeda, Offic e Visit ; Promo lisbet; Signi sree ce: *; Reaso n: Drug aller gy; ; Not Available [facility] 3 02:28:32 46996 Bactrim medicatio n dizziness Not available Not available 09/08/2022 22598 9 RxNorm React ion: Dizzi ness, Vomit ing; Comme nt: Recor ded 08/15 3:38P M by Charles Ojeda, Offic e Visit ; Promo lisbet; Signjet balbuena ce: *; Reaso n: Drug aller gy; ; Not Available [facility] 3 02:28:32 Medications Name Sig Start [...] mass index (BMI) Body weight Oxygen saturation Heart rate Body temperature Systolic And Diastolic Provider Name and Address Organization Details Last Updated DateTime 5 147.32 cm 19.9 kg/m2 81758.3 8 g 99 % 117 /min 98.3 [degF] 110/60 mm[Hg] Radha Saez [facility] 5 09:51:57 Date Recorded Body height Body mass index (BMI) Body weight Oxygen saturation Heart rate Respiratory rate Body temperature Systolic And Diastolic Provider Name and Address Organization Details Last Updated DateTime 4 147.32 cm 21.5 kg/m2 87517.0 1 g 98 % 67 /min 20 /min 97.1 [degF] 115/80 mm[Hg] Capri Seymour [facility] 4 13:06:28 Date Recorded Body height Body mass index (BMI) Body weight Oxygen saturation Heart rate Respiratory rate Body temperature Systolic And Diastolic Provider Name and Address Organization Details Last Updated DateTime 3 147.32 cm 24.5 kg/m2 70465.7 1 g 95 % 89 /min 20 /min 97.3 [degF] 110/78 mm[Hg] JUDY MUELLER [facility] 3 12:52:24 Date Recorded Body height Body mass index (BMI) Body weight Oxygen saturation Heart rate Respiratory rate Body temperature Systolic And Diastolic Provider Name and Address Organization Details Last Updated DateTime 4 147.32 cm 19.6 kg/m2 94126.6 8 g 99 % 99 /min 16 /min 98.1 [degF] 110/70 mm[Hg] Tim Corona [facility] 4 12:16:51 Date Recorded Body height Body mass index (BMI) Body weight Oxygen saturation Heart rate Respiratory rate Body temperature Systolic And Diastolic Provider Name and Address Organization Details Last Updated DateTime 3 147.32 cm 21.7 kg/m2 32570.6 1 g 97 % 83 /min 20 /min 97.5 [degF] 105/65 mm[Hg] Capri Seymour [facility] 3 17:43:48 Social History Question Answer Notes LastModified by Organizat ion Details LastModified Time Tobacco Smoking Status Current Every Day [facility]oker [facility] 07/15/2023 12:11:14 At What Age Did You Start Smoking Tobacco? 15 Information not available 07/15/2023 How Many Years Have You Smoked Tobacco? 13 [email or web address] Information not available 07/15/2023 Sex: Unknown Functional [...] Diagnosis SNOMED-CT Code Diagnosis ICD10 Code Diagnosis IMO Codes Diagnosis Note [id number] MARTA GRAJEDA [facility] ([facility]) [address] [place] [address] 05/28/2022 12:23:33 06/02/2022 15:55:37 Toothache 73747324 K08.89 Infection of tooth 40888 8007 K04.7 [id number] Willian Sherman MD [facility] ([facility]) [address] [place] [address] 01/31/2023 17:14:40 02/07/2023 11:12:49 Acute viral bronchitis 461724094 J20.8 [id number] SHRUTHI ACOSTA [facility] ([facility]) [address] [place] [address] 04/02/2023 12:30:13 04/02/2023 13:59:06 Dysuria 29220097 R30.0 Start Augmentin BID x7 days, take [...] up. Patient agreeable to plan of care. [id number] MARTA NIEVES [facility] ([facility]) [address] [place] [address] 07/15/2023 11:57:51 07/15/2023 13:04:18 detection examination 31265397 Z32.00 test negative. Migraine 49591994 G43.90 9 Offered injections today but pt prefers to have an oral anti emetic and then she can take ibuprofen when she gets home. [id number] Willian Sherman MD [facility] ([facility]) [address] [place] [address] 03/19/2024 09:36:39 03/19/2024 13:15:42 Influenza-like illness 93523654 B34.9 Influenza caused by Influenza A virus 135286758 J09.X2 Recommend supportive care. Push fluids, Tylenol/ib uprofen to help with fever and discomfort . May return back to normal activity when fever free for 24 hours and start to feel better. Will provide prednisone at the patient's request. Zofran as needed as below to help with nausea. Nausea and vomiting 2365 1999 R11.2 Health Concerns Section Related Observation LastModified by Organization Detai ls LastModified Time None Recorded Concern Status LastModified by Organization Details LastModified Time None Recorded Advance Directives Directive None Recorded Payers Insurance Date Sequence Insurance Name Policy Number Policy Martinez Covered Member ID Martinez Member ID Guarantor Name 03/19/2024 1 [place] Primitivo Beltrán [id number] Primitivo Beltrán 03/19/2024 [place] [facility] Primitivo Beltrán [id number] Primitivo Beltrán Notes Date Note Type Note Provider Name and Address Organization Details Recorded Time 05/28/2022 text/html Throat PainRepor lisbet by PatientHPIFor location, patient reportsright. For quality, patient reportsshooting,throbb ing,pressure,radiates to ear, andconstant. For severity, patient reportssevereandworsen ing. For timing, patient reportsgradual.ROS as noted in the HPI PATIENT REPORTS RIGHT SIDED FACIAL, JAW, AND THROAT PAIN FOR ABOUT 1 WEEK. YESTERDAY IT BECAME SIGNIFICANTLY WORSE AND SWOLLEN. MARTA GRAJEDA [address] [place], [address], [facility] [place] 05/28/2022 13:29:12 01/31/2023 text/html Upper Respirator y SymptomsReported by PatientUpper Respiratory SymptomsFor quality, patient reportsproductive cough,congested, andhurts to swallow. For associated symptoms, patient reportschest pain,yellow sputum,shortness of breath,sore throat, andheadache. For location, patient reportshead,chest,thro at, andnasal. For severity, patient reportsno pain. For duration, patient reportssymptoms lasting less than 2 weeks. For onset/timing, patient reportsgradual.ROS as noted in the HPI Willian Sherman MD [address] [place], [address], [facility] [place] 02/03/2023 08:21:33 04/02/2023 text/html Lower Urinary Tr act Symptoms (LUTS)Reported by PatientHPIFor associated symptoms, patient reportslow back pain,urgency,frequency , anddysuriabut reportsno abdominal pain,no groin pain, andno pelvic pain. For location, patient reportsbilateral. For quality, patient reportspainless. For severity, patient reportsmild. For onset/timing, patient reportsspontaneous. For duration, patient reportsacute.ROS as noted in the HPI Patient is a 27 year old female who presents to the walk in clinic today for urinary frequency and mid lower back pain. Patient states she has had symptoms for 2 days. Denies fever. Expresses concerns for UTI. SHRUTHI ACOSTA [address] [place], [address], [facility] [place] 04/02/2023 13:36:45 07/15/2023 text/html HeadacheReported by PatientHPIFor associated symptoms, patient reportsnausea,vomiting , andchills. For location, patient reportsunilateral. For quality, patient reportssimilar to previous headaches. For severity, patient reportsmoderate. For duration, patient reportshas noted for ___ __and<7 days/month(woke up today with headache). For onset/timing, patient reportsabrupt onset. For context, patient reportsnot related to trauma. For aggravating factors, patient reportsloud noise.Pt has not taken any meds for this. denies fever, neck pain, or recent illness. No recent trauma.Was vomiting this morning due to the cardoza.Pt states she felt like this when she was so is requesting a test.ROS as noted in the HPI MARTA NIEVES [address] [place] [address], [address], [facility] [place] 07/15/2023 12:49:06 03/19/2024 text/html ROS as noted in the [facility] walk inwoke with symptoms N/D, cough. Patient reports subjective fevers. Willian Sherman MD [address] [place] [address], [address], [facility] [place] 03/26/2024 09:12:30 OBGyn Episode No OBEpisode recorded.
[2025-01-13 06:13] VITALS: BP 109/78; PULSE 99; RESP 18; TEMP 36.8; O2SAT 100; BMI 19.2
--- NOTE | 2025-01-13 06:19 | ED_ITS ---
HPI - General Adult General: Chief complaint: Nausea/Vomiting/Diarrhea Stated complaint: vomitting, chills, shakey Time Seen by Provider: 01/13/25 06:16 History of Present Illness: 29-year-old female who presents emergenc y room with chills, shaking and generalized weakness. Says she also had a couple episodes of vomiting this morning. She says her son was sick with croup recently. No abdominal pain. No chest pain. Vitals are normal. She is afebrile. Related Data Home Medications ?Medication ?Instructions ?Recorded ?Confirmed ascorbate calcium (vitamin C) 500 500 mg PO DAILY 12/1209/10/24 mg tablet ferrous sulfate 325 mg (65 mg 325 mg PO BID 12/31/22 0 09/10/24 iron) tablet (Iron (ferrous sulfate)) norethindrone (contraceptive) 0.35 0.35 mg PO DAILY 09/10/24 mg tablet (Jencycla) Previous Rx's ?Medication ?Instructions ?Recorded ibuprofen 800 mg tablet 800 mg PO TID PAIN #60 tabs 12/30/23 promethazine 25 mg tablet 25 mg PO TID PRN nausea and 08/27/24 vomiting #7 tabs promethazine 12.5 mg tablet 12.5 mg PO Q6H PRN nausea and 08/29/24 vomiting #14 tabs hydroxyzine HCl 10 mg tablet 10 mg PO .q hs PRN anxiet y #30 tabs 09/10/24 dexamethasone 6 mg tablet 6 mg PO DAILY 5 days #5 tabs 01/13/25 promethazine 25 mg tablet 25 mg PO TID PRN nausea and 01/13/25 vomiting #14 tabs Allergies Allergy/AdvReac Type Severity Reaction Status Date / Time lanolin (From Super Duper Allergy Mild ALGY-Rash Verified 09/10/24 15:23 Diaper Doo) ondansetron (From Zofran) Allergy Mild Vomit Verified 09/10/24 15:23 petrolatum,white (From Super Allergy Mild ALGY-Rash Verified 09/10/24 15:23 Duper Diaper Doo) hydrocodone (From Vicodin) Allergy Unknown unk Verified 09/10/24 15:23 acetaminophen (From Vicodin) Allergy hallucinati Verified 09/10/24 15:23 ons diphenhydramine (From Allergy ADR-Vomitin Verified 09/10/24 15:23 Benadryl) g latex Allergy ADR-Itching Verified 09/10/24 15:23 sulfamethoxazole (From AdvReac Mild vomiting, Verified 09/10/24 15:23 Bactrim) almost blacked out trimethoprim (From Bactrim) AdvReac Mild vomiting, Verified 09/10/24 15:23 almost blacked out Review of Systems Narrative: Constitutional symptoms: Negative except as documented in HPI. Skin symptoms: Negative except as documented in HPI. Eye symptoms: Negative except as documented in HPI. ENMT symptoms: Negative except as documented in HPI. Respiratory symptoms: Negative except as documented in HPI. Cardiovascular symptoms: Negative except as documented in HPI. Gastrointestinal symptoms: Negative except as documented in HPI. Genitourinary symptoms: Negative except as documented in HPI. Musculoskeletal symptoms: Negative except as documented in HPI. Neurologic symptoms: Negative except as documented in HPI. Psychiatric symptoms: Negative except as documented in HPI. Endocrine symptoms: Negative except as documented in HPI. PFS ED PFSH: Medical History (Updated 01/13/25 @ 07:28 by Riana Delgado MD) Anxiety Psychiatric care No pertinent past medical history neghx: dm,htn,thyroid,dvt/pe Abnormal uterine bleeding Surgical History No pertinent past surgical history Family History Grandmother Hypertension Maternal grandmother Diabetes Maternal grandmother Denies family history of Colon cancer Ovarian cancer Clotting disorder Heart disease Hyperlipidemia Breast cancer Anesthesia complication Bleeding disorder Uterine cancer Thyroid disease Stroke Social History Smoking and tobacco/nicotine status: current every day tobacco/nicotine user (3-4-cig daily) Substance/Drug Use: never Female Reproductive History: Spontaneous abortions: No Physical Exam Narrative: EXAM NARRATIVE: General: Alert, no acute distress. Skin: Warm, dry. Head: Normocephalic, atraumatic. Neck: Supple, trachea midline. Eye: Extraocular movements are intact. Ears, nose, mouth and throat: mucosa moist. Cardiovascular: Regular, Normal peripheral perfusion. Respiratory: Lungs are clear to auscultation, respirations are non-labored, breath sounds are equal, Symmetrical chest wall expansion. Gastrointestinal: Soft, Nontender, Non distended Musculoskeletal: Normal ROM, no deformity. Neurological: Alert and oriented, No focal neurological deficit observed. Psychiatric: Cooperative, appropriate mood & affect. Course Vital Signs: Vital signs: Vital Signs Temperature 98.3 F 01/13/25 06:13 Pulse Rate 59 L 01/13/25 07:06 Respiratory Rate 18 01/13/25 06:13 Blood Pressure 112/75 01/13/25 07:06 Pulse Oximetry 99 01/13/25 07:06 Oxygen Delivery Me thod Room Air 01/13/25 06:13 MDM - General Adult Medical Decision Making Medical decision making Patient's reason for coming to the emergency room: Social determinants: I reviewed the patient's medical record. Patient has a history of migraines. Recently seen here and diagnosed with cannabis hyperemesis syndrome I reviewed the patient's current home meds control is the only listed chronic medication Alternate historians: None Differential diagnosis: including but not limited to and based on the above HPI, review of systems and physical exam: We will check a urine and a viral panel on this patient. UTI, viral illness are my prime thoughts on this di fferential. Orders placed to evaluate differential diagnosis based on the above differential, HPI and physical exam Lab Review: Laboratory results were reviewed and interpreted by myself the [facility] ency room physician. Flu COVID and RSV are negative. Urinalysis negative for infection. Assessment and plan: Viral illness Anxiety ?P.o. Ativan in the emergency room - Discharged home - Discussed plan with patient. Answered any questions. - Evaluation and treatment of this problem were appropriate in the emergency setting. Lab Data Laboratory Results Urine Color Yellow (Yellow) 01/13/25 06:30 Urine Appearance Clear (CLEAR) 01/13/25 06:30 Urine pH 7.0 (5-7) 01/13/25 06:30 Ur Specific [place] 1.017 (1.005-1.030) 01/13/25 06:30 Urine Protein Negative (Negative) 01/13/25 06:30 Urine Glucose (UA) Negative (Normal) 01/13/25 06:30 Urine Ketones 1+ (Negative) H 01/13/25 06:30 Urine Blood Negative (Negative) 01/13/25 06:30 Urine Nitrate Negative (Negative) 01/13/25 06:30 Urine Bilirubin Negative (Negative) 01/13/25 06:30 Urine Urobilinogen 1.0 mg/dL (Negative) 01/13/25 06:30 Ur Leukocyte Esterase Trace (Negative) A 01/13/25 06:30 Urine RBC 0-2 /hpf (0-2) 01/13/25 06:30 Urine WBC 0-5 /hpf (0-5) 01/13/25 06:30 Ur Squamous Epith Cells 0-5 /hpf (0-5) 01/13/25 06:30 Amorphous Sediment Not Reportable 01/13/25 06:30 Urine Bacteria None seen /hpf (NONE) 01/13/25 06:30 Hyaline Casts 0-4 /lpf H 01/13/25 06:30 Influenza A (PCR) Negative (Negative) 01/13/25 06:30 Influenza Type B (PCR) Negative (Negative) 01/13/25 06:30 RSV (PCR) Negative (Negative) 01/13/25 06:30 SARS-CoV-2 (PCR) Negative (Negative) 01/13/25 06:30 No radiology studies performed this visit Discharge Plan Discharge Patient Disposition: Home Clinical Impression: Viral illness Condition: Stable Prescriptions: New promethazine 25 mg tablet 25 mg PO TID PRN (Reason: nausea and vomiting) Qty: 14 0RF dexamethasone 6 mg tablet 6 mg PO DAILY 5 Days Qty: 5 0RF No Action ascorbate calcium (vitamin C) 500 mg tablet 500 mg PO DAILY Iron (ferrous sulfate) 325 mg (65 mg iron) tablet 325 mg PO BID hydroxyzine HCl 10 mg tablet 10 mg PO .q hs PRN (Reason: anxiety) Qty: 30 3RF Rx Instructions: Take one tablet daily at bedtime, if needed for anxiety ibuprofen 800 mg tablet 800 mg PO TID Qty: 60 1RF promethazine 25 mg tablet 25 mg PO TID PRN (Reason: nausea and vomiting) Qty: 7 0RF norethindrone (contraceptive) [Jencycla] 0.35 mg tablet 0.35 mg PO DAILY promethazine 12.5 mg tablet 12.5 mg PO Q6H PRN (Reason: nausea and vomiting) Qty: 14 0RF Discharge Orders: Discharge ED (Routine); Ordered 12/03/25 Ordered By: Riana Delgado Referrals: Aidan Guzmán MD [Primary Care Provider, Family Practice] Discharge Diet: Usual diet Discharge Activity: Increase activity as tolerated Patient Instructions: Viral Syndrome (ED), Opioid Safety, Pain Management, Patient Portal & Rodo Instructions Activity Restrictions/Additional Instructions: Thank you for choosing [facility] for your healthcare needs today. You have been screened and evaluated and felt safe for discharge. Health conditions do change or evolve sometimes and as such it is important that you follow up with your Primary Doctor to be re checked, 3-5 days is a general good time frame for follow up. You are always welcome to return to the ED for re assessment if your symptoms are worsening or you have new concerns Print Language: Ukrainian Coding Level of Care Code ED Commercial Field Inspector for Melia Soni
[2025-01-13 06:38] LABS: Glucose Urine UA Negative (Normal); Nitrate Urine Negative (Negative); Specific Gravity, Urine 1.017 (1.005-1.030)
[2025-01-13 06:41] VITALS: BP 128/81; PULSE 94; O2SAT 100
[2025-01-13 07:06] VITALS: BP 112/75; PULSE 59; O2SAT 99
[2025-01-13 07:24] LABS: Respiratory Syncytial Virus Ce NEGATIVE (Negative); SARS-CoV-2 PCR NEGATIVE (Negative)
[2025-01-13 07:39] VITALS: BP 113/57; PULSE 66; O2SAT 100
== END 2025-01-13 07:43 | disposition home or self-care (01) ==
PROVIDERS: Emergency Provider Emergency Medicine; PCP Family Medicine
DX: B34.9 Viral infection, unspecified (principal); Z11.52 Encounter for screening for COVID-19; F17.210 Nicotine dependence, cigarettes, uncomplicated
CPT/HCPCS: 81001; 87637; 99283; J9999